=== PATIENT | male | born 1950 | race Caucasian/White ===

== ENCOUNTER 2018-02-10 11:25 | Inpatient (IN) | payer MEDICARE, OTHER ==
[~2018-02-10] VITALS: Ht 180.3 cm; Wt 100.0 kg
[2018-02-10] VITALS (7 sets, daily range): BP systolic 121–135; BP diastolic 56–78; PULSE 84–204; RESP 17–18; TEMP 98–100; O2SAT 94–97
[~2018-02-10 11:25] MED LIST: ASPI1TAB7 PO; FENO145T2 PO; FLUT50SP EACH NARE; INDO75CA3 PO; MULT1TAB PO; OMEG1CAP50 PO; SIMV20TA PO
[2018-02-10] MEDS ORDERED: IOHEXOL 350 MG/ML 10 ML VIAL (for RAD DIAG) IVCONTRAST ONE (11:26)
[2018-02-10] MEDS ORDERED: SODIUM CHLORIDE 0.9% FLUSH 10 ML FLUSH IVF PRN (11:45)
[2018-02-10 12:07] LABS: AUTOMATED NEUTROPHIL # 2.9 TH/MM3 (1.8-7.7); BASOPHIL # 0.3 TH/MM3 (0-0.2); BASOPHIL % 0.4 % (0.0-2.0); EOSINOPHIL # 0.4 TH/MM3 (0-0.4); EOSINOPHIL % 0.7 % (0.0-4.0); HEMOGLOBIN 10.9 GM/DL (13.0-17.0); LYMPH % 93.7 % (9.0-44.0); LYMPHOCYTE # 59.5 TH/MM3 (1.0-4.8); MEAN CELL VOLUME 93.2 FL (80.0-100.0); MEAN CORPUSCULAR HGB CONC 32.1 % (32.0-36.0); MEAN PLATELET VOLUME 7.2 FL (7.0-11.0); MONO % 0.6 % (0.0-8.0); MONOCYTE # 0.4 TH/MM3 (0-0.9); NEUT % 4.6 % (16.0-70.0); PLATELET COUNT 153 TH/MM3 (150-450); RED BLOOD COUNT 3.64 MIL/MM3 (4.50-5.90); RED CELL DISTRIBUTION WIDTH 18.2 % (11.6-17.2); WHITE BLOOD COUNT 63.4 TH/MM3 (4.0-11.0)
[2018-02-10 12:19] LABS: PROTHROMBIN TIME - PATIENT 10.6 SEC (9.8-11.6)
[2018-02-10] MEDS ORDERED: COEN400C PO (12:21)
--- NOTE | 2018-02-10 12:24 | PD ---
HPI Chief Complaint: Seizure Time Seen by Provider: 12:11 Travel History International Travel<30 days: No Contact w/Intl Traveler<30days: No Traveled to known affect area: No History of Present Illness HPI 67-year-old male presents to the emergency department for evaluation after a syncopal episode that occurred today. Patient was waiting at the Center for oncology to be seen due to a cough and wheezing. He states he has been coughing for the past week. He has been wheezing for the past 2-3 days and started running a fever yesterday. Patient states his fever was 101 this morning. He has been taking NyQuil for his cough. He states he is going for a bone marrow transplant soon at the [facility] so he wanted to kick his sickness in the butt. Patient states that while waiting, he felt like he was going to have a syncopal episode so he laid down on a bed. He then had seizure activity after the syncopal episode. He states this happened one other time before and that was when he was diagnosed with leukemia. Patient states he has seizure activity the previous time as well. The patient denies any pain at this time. He denies any chest pain or shortness of breath. No abdominal pain. Nausea, vomiting, diarrhea. His oncologist is Dr. Marie and he also goes the [facility]. Patient also reports history of hyperlipidemia. He reports history of pneumonia in the past. No exacerbating or alleviating factors. Moderate severity. PFSH Past Medical History Diabetes: No Triglycerides - High: Yes Tetanus Vaccination: > 5 Years Influenza Vaccination: Yes Past Surgical History Tonsillectomy: Yes Social History Alcohol Use: Yes (OCCAS) Tobacco Use: No Substance Use: No Allergies-Medications (Allergen,Severity, Reaction): Coded Allergies: No Known Allergies (Unverified Adverse Reaction, Unknown, 02/10/18) Reported Meds & Prescriptions Reported Meds & Active Scripts Active [place] 3 500 500 mg ([place]-3 Fatty Acids) 500 Mg (200 Mg-300 Mg)-1,000 Mg Cap 1 G PO DAILY Fenofibrate 145 Mg Tab 145 Mg PO DAILY Simvastatin 20 Mg Tab 20 Mg PO DAILY Indomethacin ER (Indomethacin) 75 Mg Caper 75 Mg PO DAILY Take with food, milk, or antacids to decrease stomach adverse effects. Fluticasone Nasal [place] 50 Mcg/Act Naspr 50 Mcg EACH NARE BID 50 mcg/spray Reported Coq-10 (Coenzyme Q10 (Ubidecarenone)) 400 Mg Cap 100 Mg PO DAILY Review of Systems Except as stated in HPI: all other systems reviewed are Neg Physical Exam Narrative GENERAL: Well-nourished, well-developed male patient, afebrile. Patient has fever of 100.0. SKIN: Focused skin assessment warm/dry. HEAD: Normocephalic. Atraumatic temp of 100.0. EYES: No scleral icterus. No injection or drainage. PERRLA. EOM intact. ENT: Mucosa pink and moist. No erythema or exudates. No uvular edema. No uvular , palatal, or tonsillar deviation. Airway patent. Nasal turbinates appear normal without nasal blood, purulent drainage or septal hematoma. Bilateral tympanic membranes clear without erythema or perforation. NECK: Supple, trachea midline. No JVD or lymphadenopathy. CARDIOVASCULAR: Regular rate and rhythm without murmurs, gallops, or rubs. RESPIRATORY: Breath sounds equal bilaterally. No accessory muscle use. Lung sounds with expiratory wheezes noted throughout. GASTROINTESTINAL: Abdomen soft, non-tender, nondistended. MUSCULOSKELETAL: No cyanosis, or edema. Bilateral upper and lower extremity strength 5/5. All extremities are neurovascularly intact. BACK: Nontender without obvious deformity. No CVA tenderness. NEUROLOGICAL: Awake and alert. Cranial nerves II through XII intact. Motor and sensory grossly within normal limits. Five out of 5 muscle strength in all muscle groups. Normal speech. Finger to nose is normal bilaterally. [id number]-fu-[id number] is normal bilaterally. Data Data Last Documented VS Vital Signs Date Time Temp Pulse Resp B/P (MAP) Pulse Ox O2 Delivery O2 Flow Rate FiO2 02/10/18 14:05 86 18 135/63 (87) 95 Aerosol Mask 8.00 02/10/18 11:34 100.0 Orders Orders Complete Blood Count With Diff (02/10/18 11:38) Blood Culture (02/10/18 11:38) Electrocardiogram (02/10/18 ) Ct Brain W/O Iv Contrast(Rout) (02/10/18 ) Blood Glucose (02/10/18 11:38) Ecg Monitoring (02/10/18 11:38) Iv Access Insert/Monitor (02/10/18 11:38) Oximetry (02/10/18 11:38) Comprehensive Metabolic Panel (02/10/18 11:38) Sodium Chloride 0.9% Flush (Ns Flush) (02/10/18 11:45) Ua Includes Microscopic (02/10/18 11:38) Prothrombin Time / Inr (Pt) (02/10/18 11:38) Act Partial Throm Time (Ptt) (02/10/18 11:38) Lactic Acid Sepsis Protocol (02/10/18 11:38) Magnesium (Mg) (02/10/18 11:38) Ckmb (Isoenzyme) Profile (02/10/18 11:38) Troponin I (02/10/18 11:38) Chest, Pa & Lat (02/10/18 11:38) Oxygen Administration (02/10/18 11:38) Methylprednisolone So Succ Inj (Solumedr (02/10/18 12:30) Albuterol-Ipratropium Neb (Duoneb Neb) (02/10/18 12:30) Acetaminophen (Tylenol) (02/10/18 12:30) Sodium Chlor 0.9% 1000 Ml Inj (Ns 1000 M (02/10/18 12:30) CKMB (02/10/18 11:42) CKMB% (02/10/18 11:42) Ct Pulmonary Angiogram (02/10/18 ) Ceftriaxone Inj (Rocephin Inj) (02/10/18 13:15) Azithromycin Inj (Zithromax Inj) (02/10/18 13:15) Iohexol 350 Inj (Omnipaque 350 Inj) (02/10/18 11:26) Admit Order (Ed Use Only) (02/10/18 14:13) Labs Laboratory Tests Test 02/10/18 11:42 White Blood Count 63.4 TH/MM3 Red Blood Count 3.64 MIL/MM3 Hemoglobin 10.9 GM/DL Hematocrit 34.0 % Mean Corpuscular Volume 93.2 FL Mean Corpuscular Hemoglobin 30.0 PG Mean Corpuscular Hemoglobin Concent 32.1 % Red Cell Distribution Width 18.2 % Platelet Count 153 TH/MM3 Mean Platelet Volume 7.2 FL Neutrophils (%) (Auto) 4.6 % Lymphocytes (%) (Auto) 93.7 % Monocytes (%) (Auto) 0.6 % Eosinophils (%) (Auto) 0.7 % Basophils (%) (Auto) 0.4 % Neutrophils # (Auto) 2.9 TH/MM3 Lymphocytes # (Auto) 59.5 TH/MM3 Monocytes # (Auto) 0.4 TH/MM3 Eosinophils # (Auto) 0.4 TH/MM3 Basophils # (Auto) 0.3 TH/MM3 CBC Comment AUTO DIFF Differential Total Cells Counted 100 Neutrophils % (Manual) 4 % Band Neutrophils % 1 % Lymphocytes % 94 % Monocytes % 1 % Neutrophils # (Manual) 3.2 TH/MM3 Differential Comment FINAL DIFF MANUAL Smudge Cells PRESENT Platelet Estimate NORMAL Platelet Morphology Comment NORMAL Prothrombin Time 10.6 SEC Prothromb Time International Ratio 1.0 RATIO Activated Partial Thromboplast Time 23.3 SEC Blood Urea Nitrogen 23 MG/DL Creatinine 1.46 MG/DL Random Glucose 118 MG/DL Total Protein 8.1 GM/DL Albumin 4.1 GM/DL Calcium Level 9.6 MG/DL Magnesium Level 2.2 MG/DL Alkaline Phosphatase 51 U/L Aspartate Amino Transf (AST/SGOT) 22 U/L Alanine Aminotransferase (ALT/SGPT) 19 U/L Total Bilirubin 0.4 MG/DL Sodium Level 140 MEQ/L Potassium Level 4.3 MEQ/L Chloride Level 106 MEQ/L Carbon Dioxide Level 25.6 MEQ/L Anion Gap 8 MEQ/L Estimat Glomerular Filtration Rate 48 ML/MIN Lactic Acid Level 1.0 mmol/L Total Creatine Kinase 164 U/L Creatine Kinase MB LESS THAN 0.5 NG/ML Troponin I LESS THAN 0.02 NG/ML MDM Medical Decision Making Medical Screen Exam Complete: Yes Emergency Medical Condition: Yes Medical Record Reviewed: Yes Interpretation(s) Last Impressions Chest X-Ray 02/10/18 1138 Signed Impressions: Service Date/Time: Saturday, February 10, 2018 12:44 - CONCLUSION: Multiple scattered nonspecific small infiltrates in both lung mistry. Kvng Reyes MD CT brain CONCLUSION: 1. No acute intracranial abnormality is identified. CT pulmonary angiogram - CONCLUSION: Axillary, mediastinal and monica hepatis adenopathy also suspicious for neoplastic process. There is no central pulmonary emboli Patchy airspace disease probably left lung. Moderate coronary calcifications. Differential Diagnosis Pneumonia versus sepsis versus electrolyte abnormality versus dehydration versus UTI versus PE Narrative Course 67-year-old male presents to the emergency department for evaluation of a syncopal episode and seizure-like activity. This is the second time this has happened to the patient. He has currently diagnosed with chronic lymphocytic leukemia and is being seen by Dr. Marie and the [facility]. He also reports cough, wheezing, fever. CBC, CMP, CK, troponin, magnesium, lactic acid, PTT, PT/INR, blood cultures 2 are ordered and pending. UA is ordered and pending. CT of the brain, CT pulmonary angiogram, and chest x-ray are ordered and pending. Patient is given DuoNeb 3, Solu-Medrol 125 mg IV, Tylenol 650 mg p.o., 1 L normal saline IV bolus. CBC shows leukocytosis 63.4. CMP shows BUN 23, creatinine 1.46. CK is 164. Troponin is less than 0.02. Lactic acid is 1.0. Magnesium is 2.2. Coags show no acute abnormal. UA [-]. Chest x-ray shows multiple scattered nonspecific small infiltrates in both lungs. CT of the brain shows no acute intracranial abnormality. CT pulmonary angiogram shows axillary, mediastinal, mnoica hepatic adenopathy also suspicious for neoplastic process, no central pulmonary emboli, patchy airspace disease, moderate coronary calcifications. Patient started on Rocephin 1 g IV, azithromycin 500 mg IV. Hospitalist was paged for admission. The patient sees the residents in their clinic. The residents accepted the admission. Sepsis Criteria SIRS Criteria (2 or more): Heart rate over 90, WBC > 76968, < 4000 or > 10% bands Sepsis Criteria (SIRS+source): Infect source susp/known Diagnosis Primary Impression: Pneumonia Qualified Codes: J18.9 - Pneumonia, unspecified organism Additional Impressions: Syncope Qualified Codes: R55 - Syncope and collapse Chronic lymphocytic leukemia Admitting Information Admitting Physician Requests: Admit Lizet Matta Feb 10, 2018 12:23
[2018-02-10 12:26] LABS: ALBUMIN 4.1 GM/DL (3.4-5.0); ALT (GPT) 19 U/L (12-78); AST (GOT) 22 U/L (15-37); BICARBONATE 25.6 MEQ/L (21.0-32.0); BLOOD UREA NITROGEN 23 MG/DL (7-18); CALCIUM 9.6 MG/DL (8.5-10.1); CHLORIDE 106 MEQ/L (98-107); CREATININE 1.46 MG/DL (0.60-1.30); GLOMERULAR FILTRATION RATE 48 ML/MIN (>89); GLUCOSE,RANDOM 118 MG/DL (74-106); MAGNESIUM 2.2 MG/DL (1.5-2.5); SODIUM (NA) 140 MEQ/L (136-145)
[2018-02-10] MEDS ORDERED: methylPREDNISolone SOD SUCC 125 MG/2 ML VIAL IV PUSH ONE (12:30)
[2018-02-10] MEDS ORDERED: SODIUM CHLOR 0.9% 1000 ML INJ 1,000 ML IV ONE (12:30)
[2018-02-10] MEDS ORDERED: ACETAMINOPHEN 325 MG TAB PO ONE (12:30)
[2018-02-10 12:31] LABS: ALKALINE PHOSPHATASE 51 U/L (45-117); TOTAL BILIRUBIN ADULT 0.4 MG/DL (0.2-1.0); TOTAL PROTEIN 8.1 GM/DL (6.4-8.2); TROPONIN I LESS THAN 0.02 NG/ML (0.02-0.05)
[2018-02-10 12:46] LABS: BANDS 1 % (0-6); LYMPHOCYTES 94 % (9-44); MONOCYTES 1 % (0-8); NEUTROPHIL # MANUAL DIFF 3.2 TH/MM3 (1.8-7.7); POLYS (SEG NEUTROPHILS) 4 % (16-70)
[2018-02-10 12:47] LABS: SMUDGE CELLS PRESENT PRESENT
--- NOTE | 2018-02-10 12:58 | RADRPT ---
EXAM DATE/TIME: 02/10/2018 12:44 [facility] COMPARISON: No previous studies available for comparison. INDICATIONS : Syncope. Seizure. Cough. Wheezing. MEDICAL HISTORY : Leukemia (recently diagnosed). SURGICAL HISTORY : None. ENCOUNTER: Initial ACUITY: 1 week PAIN SCORE: 0/10 LOCATION: Bilateral chest FINDINGS: There are scattered nonspecific small infiltrates in both lung mistry. Otherwise there is good aerati on of the lung mistry. There are no pleural effusions or pulmonary edema. The heart size is within no rmal limits. There is no evidence of pneumothorax. The bony structures are grossly intact. CONCLUSION: Multiple scattered nonspecific small infiltrates in both lung mistry. Kvng Reyes MD on February 10, 2018 at 12:55 Board Certified Radiologist. This report was verified electronically.
[2018-02-10] MEDS ORDERED: AZITHROMYCIN INJ 500 MG in SODIUM CHLOR 0.9% 250 ML INJ 250 ML IV ONE (13:15)
[2018-02-10] MEDS ORDERED: cefTRIAXone INJ 1,000 MG in SODIUM CHLORIDE 0.9% INJ 100 ML IV ONE (13:15)
[2018-02-10] MEDS: RESP: ALBUTEROL 2.5 MG/IPRATROPIUM 0.5 MG NEB (SCH) INH ×2 (13:22→15:58)
--- NOTE | 2018-02-10 13:49 | RADRPT ---
EXAM DATE/TIME: 02/10/2018 13:26 [facility] COMPARISON: No previous studies available for comparison. INDICATIONS : Syncope with seizure like activity RADIATION DOSE: 56.35 CTDIvol (mGy) MEDICAL HISTORY : Leukemia. SURGICAL HISTORY : None. ENCOUNTER: Initial ACUITY: 1 day PAIN SCALE: 0/10 LOCATION: cranial TECHNIQUE: Multiple contiguous axial images were obtained of the head. Using automated exposure control and adj ustment of the mA and/or kV according to patient size, radiation dose was kept as low as reasonably a chievable to obtain optimal diagnostic quality images. DICOM format image data is available electro nically for review and comparison. FINDINGS: CEREBRUM: The ventricles are normal for age. No evidence of midline shift, mass lesion, hemorrhage or acute in farction. No extra-axial fluid collections are seen. POSTERIOR FOSSA: The cerebellum and brainstem are intact. The 4th ventricle is midline. The cerebellopontine angle i s unremarkable. EXTRACRANIAL: The visualized portion of the orbits is intact. SKULL: The calvaria is intact. No evidence of skull fracture. CONCLUSION: 1. No acute intracranial abnormality is identified. Mikhail St MD on February 10, 2018 at 13:45 Board Certified Radiologist. This report was verified electronically.
--- NOTE | 2018-02-10 13:58 | RADRPT ---
EXAM DATE/TIME: 02/10/2018 13:29 [facility] COMPARISON: CHEST PA & LAT, February 10, 2018, 12:44. INDICATIONS : Syncope IV CONTRAST: 71 cc Omnipaque 350 (iohexol) IV RADIATION DOSE: 10.75 CTDIvol (mGy) MEDICAL HISTORY : Leukemia. SURGICAL HISTORY : None. ENCOUNTER: Initial ACUITY: 1 day PAIN SCALE: 0/10 LOCATION: chest TECHNIQUE: Volumetric scanning of the chest was performed using a pulmonary embolism protocol MIP images were re constructed. Using automated exposure control and adjustment of the mA and/or kV according to patien t size, radiation dose was kept as low as reasonably achievable to obtain optimal diagnostic quality images. DICOM format image data is available electronically for review and comparison. Follow-up recommendations for detected pulmonary nodules are based at a minimum on nodule size and pa tient risk factors according to Fleischner Society Guidelines. FINDINGS: Patchy airspace disease is seen in both the right and left lungs worse in the left upper lobe. There is no pleural effusion Large axillary nodes are present, the largest node measuring 2.7 cm. Mediastinum is not is present a s well. The largest precarinal node measures 2.2 cm. There is right hilar lymph node mass. The lar ge subcarinal lymph node mass evident. Moderate coronary calcifications. There is no central pulmonary emboli Adenopathy is seen in the monica hepatis.. The spleen is of normal size Degenerative changes are seen in the thoracic spine. CONCLUSION: Axillary, mediastinal and monica hepatis adenopathy also suspicious for neoplastic process. There is no central pulmonary emboli Patchy airspace disease probably left lung. Moderate coronary calcifications. Ugo St MD FACR on February 10, 2018 at 13:52 Board Certified Radiologist. This report was verified electronically.
[2018-02-10] MEDS ORDERED: BISACODYL 10 MG SUPP RECTAL PRN (14:30)
[2018-02-10] MEDS ORDERED: MAGNESIUM HYDROXIDE SUSP 30 ML CUP PO PRN (14:30)
[2018-02-10] MEDS ORDERED: SODIUM CHLORIDE 0.9% FLUSH 10 ML FLUSH IV FLUSH PRN (14:30)
[2018-02-10] MEDS ORDERED: ONDANSETRON HCL 4 MG/2 ML VIAL IVP PRN (14:30)
[2018-02-10] MEDS ORDERED: LACTULOSE SYRUP 20 GM/30 ML CUP PO PRN (14:30)
[2018-02-10] MEDS ORDERED: ACETAMINOPHEN 325 MG TAB PO PRN (14:30)
[2018-02-10] MEDS ORDERED: NALOXONE HCL 0.4 MG/ML AMP IV PUSH PRN (14:30)
[2018-02-10] MEDS ORDERED: SENNOSIDES 8.6 MG TAB PO PRN (14:30)
--- NOTE | 2018-02-10 14:53 | HHI.HP ---
HPI Service Family Medicine Primary Care Physician Non-Staff Admission Diagnosis pneumonia, syncope, chronic lymphocytic leukemia Diagnoses: International Travel<30 Days: No Contact w/Intl Traveler<30days: No History of Present Illness Patient is a 67 year old male with history of CLL and HTN, and hypothyroidism who presents after syncopal episode and likely seizure. About one week ago patient began to have a cough, productive but patient has not seen it (swallows it). This morning he went for evaluate at [facility]. Patient had a temperature of about 101F at home last night. He took Nyquil which did not help with his symptoms. He acutely got worse and had a syncopal/ seizure-type episode. He was sitting in chair and patient became diaphoretic, lied down and then blacked out. Per , he lost his color, eyes rolled back in head, had urinary incontinence. No tongue biting. No room spinning or dizziness symptoms. Lasted 30 seconds to one minute. About fifteen minutes later he felt a similar prodrome but did not lose consciousness. He was taken to ED via [facility] for further work-up. No history of seizures aside from possible seizure in 10/2017. Has pleuritis chest pain. No shortness of breath. Notes he has had only coffee today. Patient has recent diagnosis of CLL: * October 2017: had an episode like a seizure. He was sitting in restaurant after a day of golf, then patient became diaphoretic and had a syncopal episode. Echo, bloodwork performed at that time, concerning for CLL. FISH studies, other w/u pending. * Dr. Marie evaluated patient. Dr. Pepper in [place] ([facility]). Scheduled for bone marrow bx and CT scans at [facility] next * Scheduled to go to [place] on March 25 (Rubina Ruiz MD) Review of Systems Constitutional: COMPLAINS OF: Diaphoretic episodes, Fever (101 on 02/09), DENIES : Weight gain, Weight loss, Dizziness, Change in appetite Eyes: DENIES: Blurred vision, Diplopia Ears, nose, mouth, throat: COMPLAINS OF: Tinnitus (chronic), Hearing loss ( chronic), Nasal discharge, DENIES: Vertigo, Throat pain, Ear Pain, Epistaxis, Sinus Pain, Toothache, Odynophagia Respiratory: COMPLAINS OF: Cough, DENIES: Wheezing, Hemoptysis, Sputum production, Shortness of breath Cardiovascular: COMPLAINS OF: Syncope, DENIES: Chest pain, Palpitations Gastrointestinal: DENIES: Abdominal pain, Constipation, Diarrhea, Nausea, Vomiting, Difficulty Swallowing Genitourinary: DENIES: Urinary frequency, Dysuria Musculoskeletal: DENIES: Joint pain, Muscle aches Integumentary: DENIES: Pruritus, Rash Hematologic/lymphatic: COMPLAINS OF: Lymphadenopathy, DENIES: Bruising Neurologic: COMPLAINS OF: Seizures, DENIES: Abnormal gait, Headache, Localized weakness, Paresthesias, Poor Balance (Rubina Ruiz MD) Past Family Social History Past Medical History Osteoarthritis Hemorrhoids Pneumonia x 2 (11-day hospitalizations for both, over 30 years ago) Leukocytosis/lymphocytosis 10/2017: WBC 60 Normocytic anemia Thrombocytopenia Dyslipidemia Past Surgical History Colonoscopy 1999 -refuses to have any more Hemorrhoidectomy 2007 Repair of right ankle/foot in 1987 after accident Tonsillectomy 1954 Reported Medications Reported Meds & Active Scripts Active [place] 3 500 500 mg (Newport-3 Fatty Acids) 500 Mg (200 Mg-300 Mg)-1,000 Mg Cap 1 G PO DAILY Fenofibrate 145 Mg Tab 145 Mg PO DAILY Simvastatin 20 Mg Tab 20 Mg PO DAILY Indomethacin ER (Indomethacin) 75 Mg Caper 75 Mg PO DAILY Take with food, milk, or antacids to decrease stomach adverse effects. Fluticasone Nasal [place] 50 Mcg/Act Naspr 50 Mcg EACH NARE BID 50 mcg/spray Reported Coq-10 (Coenzyme Q10 (Ubidecarenone)) 400 Mg Cap 100 Mg PO DAILY (Rubina Ruiz MD) Allergies: Coded Allergies: No Known Allergies (Unverified Adverse Reaction, Unknown, 02/10/18) Active Ordered Medications Inpatient Medications Acetaminophen (Tylenol) 650 mg Q4H PRN PO TEMP > 100.4, PAIN 1-10; Start at 14:30 Albuterol/ Ipratropium (Duoneb Neb) 1 ampule Q6HR NEB INH Last administered on 02/10/18at 15:58; Start 02/10/18 at 16:00 Azithromycin (Zithromax) 500 mg DAILY PO ; Start 02/11/18 at 09:00 Azithromycin 500 mg/Sodium Chloride 250 ml @ 250 mls/hr ONCE ONCE IV Last administered on 02/10/18at 13:59; Start 02/10/18 at 13:15; Stop 02/10/18 at 14:14 ; Status DC Bisacodyl (Dulcolax Supp) 10 mg DAILY PRN RECTAL SEVERE CONSITIPATION; Start at 14:30 Ceftriaxone Sodium 1000 mg/ Sodium Chloride 100 ml @ 200 mls/hr Q24H IV ; Start 02/11/18 at 14:00 Enoxaparin Sodium (Lovenox Inj) 40 mg Q24H SQ ; Start 02/10/18 at 16:00 Fenofibrate (Tricor) 48 mg DAILY PO ; Start 02/11/18 at 09:00 Fluticasone Propionate (Flonase Petr Spr) 1 spray BID EACH NARE ; Start 02/10/18 at 21:00 Indomethacin (Indocin Sr) 75 mg DAILY PO Last administered on 02/10/18at 15:48 ; Start 02/10/18 at 15:15 Lactulose (Lactulose Liq) 30 ml DAILY PRN PO SEVERE CONSITIPATION; Start at 14:30 Lorazepam (Ativan Inj) 2 mg UNSCH PRN IV PUSH SEE LABEL COMMENTS; Start at 15:15 Magnesium Hydroxide (Milk Of Magnesia Liq) 30 ml Q12H PRN PO Mild constipation ; Start 02/10/18 at 14:30 Methylprednisolone Sodium Succinate (SoluMEDROL INJ) 125 mg ONCE ONCE IV PUSH Last administered on 02/10/18at 12:32; Start 02/10/18 at 12:30; Stop 02/10/18 at 12:31; Status DC Naloxone HCl (Narcan Inj) 0.4 mg UNSCH PRN IV PUSH SEE LABEL COMMENTS; Start at 14:30 Ondansetron HCl (Zofran Inj) 4 mg Q6H PRN IVP NAUSEA OR VOMITING; Start at 14:30 Pravastatin Sodium (Pravachol) 40 mg DAILY PO ; Start 02/10/18 at 20:00 Senna/Docusate Sodium (Karmen-Colace) 1 tab BID PO ; Start 02/10/18 at 21:00 Sennosides (Senokot) 17.2 mg Q12H PRN PO Moderate constipation; Start 3/19/18 at 14:30 Sodium Chloride (NS Flush) 2 ml BID IV FLUSH ; Start 02/10/18 at 21:00 Family History Parents both MGM . MGF at age 70 PGM . PGF . 2 sons alive and healthy one daughter alive and healthy Social History . [employer]. Never smoked. Drinks socially. Patient had Prevnar vaccine 2015. Pneumovax 2017. (Rubina Ruiz MD) Physical Exam Vital Signs Vital Signs Date Time Temp Pulse Resp B/P (MAP) Pulse Ox O2 Delivery O2 Flow Rate FiO2 02/10/18 14:05 86 18 135/63 (87) 95 Aerosol Mask 8.00 02/10/18 12:21 84 18 121/56 (77) 95 Room Air 02/10/18 12:16 86 18 94 Room Air 02/10/18 11:34 100.0 98 18 135/65 (88) 95 Physical Exam GENERAL: This is a well-nourished, well-developed male in no apparent distress. at bedside. SKIN: No rashes, ecchymoses or lesions. Cool and dry. HEAD: Atraumatic. Normocephalic. No temporal or scalp tenderness. EYES: Pupils equal round and reactive to light and accommodation. EOMI. No scleral icterus. No injection or drainage. ENT: Nose without bleeding or purulent drainage. Throat without erythema, tonsillar hypertrophy or exudate. Uvula midline. Airway patent. NECK: Trachea midline. No JVD. Shotty cervical lymphadenopathy noted bilaterally, worse on the left. No axillary or inguinal lymphadenopathy noted. Neck supple, nontender, no meningeal signs. CARDIOVASCULAR: Regular rate and rhythm without murmurs, gallops, or rubs. RESPIRATORY: Clear to auscultation aside from some transmitted upper airway sounds. Breath sounds equal bilaterally. No wheezes, rales, or rhonchi. GASTROINTESTINAL: Abdomen soft, non-tender, nondistended. Obese. Normal bowel sounds. No hepato-splenomegaly, or palpable masses. No guarding. MUSCULOSKELETAL: Extremities without clubbing, cyanosis, or edema. Mild deformity which is chronic of the left ankle. No joint tenderness, effusion, or edema noted. No calf tenderness. NEUROLOGICAL: Awake and alert. Cranial nerves II through XII grossly intact. Motor and sensory grossly within normal limits. Grossly normal strength in all muscle groups. Normal speech. Laboratory Laboratory Tests Test 02/10/18 11:42 White Blood Count 63.4 Red Blood Count 3.64 Hemoglobin 10.9 Hematocrit 34.0 Mean Corpuscular Volume 93.2 Mean Corpuscular Hemoglobin 30.0 Mean Corpuscular Hemoglobin Concent 32.1 Red Cell Distribution Width 18.2 Platelet Count 153 Mean Platelet Volume 7.2 Neutrophils (%) (Auto) 4.6 Lymphocytes (%) (Auto) 93.7 Monocytes (%) (Auto) 0.6 Eosinophils (%) (Auto) 0.7 Basophils (%) (Auto) 0.4 Neutrophils # (Auto) 2.9 Lymphocytes # (Auto) 59.5 Monocytes # (Auto) 0.4 Eosinophils # (Auto) 0.4 Basophils # (Auto) 0.3 CBC Comment AUTO DIFF Differential Total Cells Counted 100 Neutrophils % (Manual) 4 Band Neutrophils % 1 Lymphocytes % 94 Monocytes % 1 Neutrophils # (Manual) 3.2 Differential Comment FINAL DIFF MANUAL Smudge Cells PRESENT Platelet Estimate NORMAL Platelet Morphology Comment NORMAL Prothrombin Time 10.6 Prothromb Time International Ratio 1.0 Activated Partial Thromboplast Time 23.3 Blood Urea Nitrogen 23 Creatinine 1.46 Random Glucose 118 Total Protein 8.1 Albumin 4.1 Calcium Level 9.6 Magnesium Level 2.2 Alkaline Phosphatase 51 Aspartate Amino Transf (AST/SGOT) 22 Alanine Aminotransferase (ALT/SGPT) 19 Total Bilirubin 0.4 Sodium Level 140 Potassium Level 4.3 Chloride Level 106 Carbon Dioxide Level 25.6 Anion Gap 8 Estimat Glomerular Filtration Rate 48 Lactic Acid Level 1.0 Total Creatine Kinase 164 Creatine Kinase MB LESS THAN 0.5 Troponin I LESS THAN 0.02 Date/Time Source Procedure Growth Status 02/10/18 11:47 Blood Peripheral Aerobic Blood Culture Pending Received 02/10/18 11:47 Blood Peripheral Anaerobic Blood Culture Pending Received (Rubina Ruiz MD) Result Diagram: 02/10/18 1142 02/10/18 1142 Imaging Last Impressions Chest X-Ray 02/10/18 1138 Signed Impressions: Service Date/Time: Saturday, February 10, 2018 12:44 - CONCLUSION: Multiple scattered nonspecific small infiltrates in both lung mistry. Kvng Reyes MD Head CT 02/10/18 0000 Signed Impressions: Service Date/Time: Saturday, February 10, 2018 13:26 - CONCLUSION: 1. No acute intracranial abnormality is identified. Mikhail St MD CT Angiography 02/10/18 0000 Signed Impressions: Service Date/Time: Saturday, February 10, 2018 13:29 - CONCLUSION: Axillary, mediastinal and monica hepatis adenopathy also suspicious for neoplastic process. There is no central pulmonary emboli Patchy airspace disease probably left lung. Moderate coronary calcifications. Ugo St MD FACR (Rubina Ruiz MD) Caprini VTE Risk Assessment Caprini VTE Risk Assessment: Mod/High Risk (score >= 2) Caprini Risk Assessment Model Point Value = 1 Point Value = 2 Point Value = 3 Point Value = 5 Age 41-60 Minor surgery BMI > 25 kg/m2 Swollen legs Varicose veins or History of unexplained or recurrent spontaneous Oral contraceptives or hormone replacement Sepsis (< 1 month) Serious lung disease, including pneumonia (< 1 month) Abnormal pulmonary function Acute myocardial infarction Congestive heart failure (< 1 month) History of inflammatory bowel disease Medical patient at bed rest Age 61-74 Arthroscopic surgery Major open surgery (> 45 min) Laparoscopic surgery (> 45 min) Malignancy Confined to bed (> 72 hours) Immobilizing plaster cast Central venous access Age >= 75 History of VTE Family history of VTE Factor V Leiden Prothrombin [id number] Lupus anticoagulant Anticardiolipin antibodies Elevated serum homocysteine Heparin-induced thrombocytopenia Other congenital or acquired thrombophilia Stroke (< 1 month) Elective arthroplasty Hip, pelvis, or leg fracture Acute spinal cord injury (< 1 month) Prophylaxis Regimen Total Risk Factor Score Risk Level Prophylaxis Regimen 0-1 Low Early ambulation 2 Moderate Order ONE of the following: *Sequential Compression Device (SCD) *Heparin 5000 units SQ BID 3-4 Higher Order ONE of the following medications: *Heparin 5000 units SQ TID *Enoxaparin/Lovenox 40 mg SQ daily (WT < 150 kg, CrCl > 30 mL/min) *Enoxaparin/Lovenox 30 mg SQ daily (WT < 150 kg, CrCl > 10-29 mL/min) *Enoxaparin/Lovenox 30 mg SQ BID (WT < 150 kg, CrCl > 30 mL/min) AND/OR *Sequential Compression Device (SCD) 5 or more Highest Order ONE of the following medications: *Heparin 5000 units SQ TID (Preferred with Epidurals) *Enoxaparin/Lovenox 40 mg SQ daily (WT < 150 kg, CrCl > 30 mL/min) *Enoxaparin/Lovenox 30 mg SQ daily (WT < 150 kg, CrCl > 10-29 mL/min) *Enoxaparin/Lovenox 30 mg SQ BID (WT < 150 kg, CrCl > 30 mL/min) AND *Sequential Compression Device (SCD) (Rubina Ruiz MD) Assessment and Plan Assessment and Plan 67-year-old male with CLL currently in workup process, hypothyroidism, osteoarthritis who presents after syncopal episode. This is his second syncopal episode since October 2017 and he notes that he possibly had seizure activity both times. No seizure workup has yet occurred. On workup in the ED patient found to have possible pneumonia given symptoms and CXR findings. Suspect initial viral etiology but this likely is transition to bacterial source at this time given chronicity. CTA negative for PE. Leukocytosis noted, but this is at patient's baseline if not improved. Last labs were 02/04/[address] Marie. Also noted to have ITZEL on admission. Echocardiogram from outpatient reviewed from 11/19/2017 showing normal EF 55-60% , mild MR, mild TR. Patient admitted for IV antibiotics and close monitoring. He will also be monitored closely for seizure activity and have EEG. Code Status Full code Discussed Condition With Seen and discussed with Dr. Elmira Ferro (Rubina Ruiz MD) Attending Attestation This 67 yo male patient of Dr. Brock was seen, examined and discussed with Dr. Ruiz. Very stable in appearance and on exam, with wbc trending down from earlier in the month. Afebrile, BP stable. EKG normal. I agree with the plan as documented. From tomorrow he will be followed by Margarita Pollard and Timothy. (Elmira Ferro MD) Problem List: (1) Pneumonia ICD Codes: J18.9 - Pneumonia, unspecified organism Status: Acute Plan: Patient presented with approximately 1 week history of upper respiratory symptoms which have worsened gradually. Syncopal episode today may have been related to acute infection. Patient is status post 1 L normal saline in the ED with workup notable for leukocytosis but interpretation is complicated by CLL diagnosis. Status post 125 milligrams Solu-Medrol IV 1 in ED. CXR showing small bilateral infiltrates in both lung mistry, CTA showing no PE and similar infiltrates. * Continue normal saline at 140cc/hr * Rocephin 1 g daily, Zithromax 100 mg daily to cover for pneumonia * Duo nebs every 6 hours scheduled, albuterol every 2 hours as needed * Continue fluticasone 2 sprays each nare daily * Patient is noted to have had Prevnar vaccine August 2015, pneumococcal vaccine November 2016. * Recheck CBC and BMP regularly, discontinue IV fluids once ITZEL resolved (2) Seizure ICD Codes: R56.9 - Unspecified convulsions Status: Acute Plan: Patient with possible first or second episode of seizure lasting approximately 1 minute. Possibly this was a syncopal episode the patient did have loss of bladder function during episode. No previous EEG workup. CT head negative on arrival to ED. Will initiate seizure precautions, give Ativan if needed, order EEG. (3) Syncopal episodes ICD Codes: R55 - Syncope and collapse Plan: Unclear etiology, possibly related to seizure or dehydration or acute infection. Will monitor closely as noted above. Telemetry. Echo reviewed from outpatient noted above. Will order cardiac enzymes overnight (4) Chronic lymphocytic leukemia ICD Codes: C91.90 - Lymphoid leukemia, unspecified not having achieved remission Status: Acute Plan: Patient diagnosed approximately October 2017 for CLL. Currently receiving workup to include bone marrow biopsy next week, body scan at that time as well. Dr. Marie is local oncologist and patient also is being evaluated at [facility] [place] in [place]. Not currently on any treatments. Leukocytosis noted with WBC approximately 64 at time of admission. Noted to have mild anemia and lower limit platelet count on admission, stable. * Notably ANC is 3550, will monitor closely * If ANC drops below 1000 will consider broad spectrum antibiotics to cover Pseudomonas and other GNR's given immunocompromised (5) ITZEL (acute kidney injury) ICD Codes: N17.9 - Acute kidney failure, unspecified Status: Acute Plan: Noted, mild, will monitor. Suspect due to dehydration. Recheck BMP regularly, discontinue IV fluids once ITZEL resolved (6) HLD (hyperlipidemia) ICD Codes: E78.5 - Hyperlipidemia, unspecified Status: Chronic Plan: Chronic, stable, continue home dose of simvastatin 20 mg daily and fenofibrate 145 mg daily (7) Fluids/Electrolytes/Nutrition/Prophylaxis Status: Acute Plan: Fluids: tolerating PO/NS @ 140ml/hr. ITZEL noted on admission will monitor. Electrolytes: monitor and replete as needed Nutrition: Regular diet DVT Prophylaxis: Early ambulation. Lovenox 40mg subQ q24hr/bilateral SCDs GI Prophylaxis: None and PRN anti-HTN: Clonidine 0.1mg PO PRN for SBP > 180/ and/or DBP > 100 (Rubina Ruiz MD) Physician Certification 2 Midnight Certification Type: Admission for Inpatient Services Order for Inpatient Services The services are ordered in accordance with Medicare regulations or non- Medicare payer requirements, as applicable. In the case of services not specified as inpatient-only, they are appropriately provided as inpatient services in accordance with the 2-midnight benchmark. Estimated LOS (days): 3 days is the estimated time the patient will need to remain in the hospital, assuming treatment plan goals are met and no additional complications. Post-Hospital Plan: Home (Rubina Ruiz MD) Problem Qualifiers (1) Pneumonia: Qualified Codes: J18.9 - Pneumonia, unspecified organism Rubina Ruiz MD Feb 10, 2018 14:53 Elmira Ferro MD Feb 10, 2018 18:04
[2018-02-10] MEDS ORDERED: LORazepam 2 MG/ML VIAL IV PUSH PRN (15:15)
[2018-02-10] MEDS: INDOMETHACIN 75 MG CONTROLLED RELEASE CAP PO SCH (15:48)
[2018-02-10] MEDS: ENOXAPARIN SODIUM 40 MG/0.4 ML SYRINGE SQ SCH ×2 (16:00→18:26)
[2018-02-10] MEDS: SODIUM CHLOR 0.9% 1000 ML INJ 1,000 ML IV SCH ×2 (16:34→20:40)
[2018-02-10] MEDS ORDERED: cloNIDine HCL 0.1 MG TAB PO PRN (17:15)
[2018-02-10] MEDS ORDERED: NON-FORMULARY DRUG (Simvastatin 20 MG) PO SCH (20:00)
[2018-02-10 20:02] LABS: AUTOMATED NEUTROPHIL # 3.7 TH/MM3 (1.8-7.7); BASOPHIL # 0.2 TH/MM3 (0-0.2); BASOPHIL % 0.3 % (0.0-2.0); EOSINOPHIL # 0.3 TH/MM3 (0-0.4); EOSINOPHIL % 0.4 % (0.0-4.0); HEMATOCRIT 31.8 % (39.0-51.0); HEMOGLOBIN 10.1 GM/DL (13.0-17.0); LYMPH % 92.9 % (9.0-44.0); MEAN CELL VOLUME 93.9 FL (80.0-100.0); MEAN CORPUSCULAR HEMOGLOBIN 29.8 PG (27.0-34.0); MEAN CORPUSCULAR HGB CONC 31.8 % (32.0-36.0); MEAN PLATELET VOLUME 7.4 FL (7.0-11.0); MONO % 0.7 % (0.0-8.0); MONOCYTE # 0.4 TH/MM3 (0-0.9); NEUT % 5.7 % (16.0-70.0); PLATELET COUNT 145 TH/MM3 (150-450); RED BLOOD COUNT 3.39 MIL/MM3 (4.50-5.90); RED CELL DISTRIBUTION WIDTH 17.8 % (11.6-17.2); WHITE BLOOD COUNT 64.6 TH/MM3 (4.0-11.0)
[2018-02-10 20:31] LABS: BICARBONATE 21.1 MEQ/L (21.0-32.0); BLOOD UREA NITROGEN 28 MG/DL (7-18); CHLORIDE 106 MEQ/L (98-107); CREATININE 1.57 MG/DL (0.60-1.30); GLOMERULAR FILTRATION RATE 44 ML/MIN (>89); GLUCOSE,RANDOM 264 MG/DL (74-106); SODIUM (NA) 141 MEQ/L (136-145); TROPONIN I LESS THAN 0.02 NG/ML (0.02-0.05)
[2018-02-10] MEDS: SODIUM CHLORIDE 0.9% FLUSH 10 ML FLUSH IV FLUSH SCH (20:38)
[2018-02-10] MEDS: FLUTICASONE PROPIONATE 50 MCG/ACT 16 GM NASAL SPRAY EACH NARE SCH (20:39)
[2018-02-10] MEDS: DOCUSATE SODIUM 50 MG/SENNA 8.6 MG TAB PO SCH (20:40)
[2018-02-10 20:45] LABS: BANDS 1 % (0-6); LYMPHOCYTES 94 % (9-44); NEUTROPHIL # MANUAL DIFF 3.9 TH/MM3 (1.8-7.7); POLYS (SEG NEUTROPHILS) 5 % (16-70)
[2018-02-10] MEDS: PRAVASTATIN SOD 40 MG TAB PO SCH (20:45)
[2018-02-11] VITALS (18 sets, daily range): BP systolic 118–158; BP diastolic 57–82; PULSE 75–99; RESP 16–18; TEMP 97.2–99.5; O2SAT 93–100
[2018-02-11 02:16] LABS: HEMATOCRIT 27.5 % (39.0-51.0); MEAN CELL VOLUME 92.6 FL (80.0-100.0); MEAN CORPUSCULAR HEMOGLOBIN 30.5 PG (27.0-34.0); MEAN CORPUSCULAR HGB CONC 32.9 % (32.0-36.0); MEAN PLATELET VOLUME 7.1 FL (7.0-11.0); PLATELET COUNT 133 TH/MM3 (150-450); RED BLOOD COUNT 2.97 MIL/MM3 (4.50-5.90); RED CELL DISTRIBUTION WIDTH 18.1 % (11.6-17.2); WHITE BLOOD COUNT 54.6 TH/MM3 (4.0-11.0)
[2018-02-11 02:38] LABS: LYMPHOCYTES 97 % (9-44); NEUTROPHIL # MANUAL DIFF 1.6 TH/MM3 (1.8-7.7); POLYS (SEG NEUTROPHILS) 3 % (16-70)
[2018-02-11 02:41] LABS: ALBUMIN 3.3 GM/DL (3.4-5.0); ALKALINE PHOSPHATASE 39 U/L (45-117); ALT (GPT) 16 U/L (12-78); AST (GOT) 22 U/L (15-37); BICARBONATE 22.9 MEQ/L (21.0-32.0); BLOOD UREA NITROGEN 31 MG/DL (7-18); CALCIUM 8.3 MG/DL (8.5-10.1); CHLORIDE 111 MEQ/L (98-107); CREATININE 1.36 MG/DL (0.60-1.30); GLOMERULAR FILTRATION RATE 52 ML/MIN (>89); GLUCOSE,RANDOM 175 MG/DL (74-106); SODIUM (NA) 143 MEQ/L (136-145); TOTAL BILIRUBIN ADULT 0.2 MG/DL (0.2-1.0); TOTAL PROTEIN 6.8 GM/DL (6.4-8.2); TROPONIN I LESS THAN 0.02 NG/ML (0.02-0.05)
[2018-02-11] MEDS: RESP: ALBUTEROL 2.5 MG/IPRATROPIUM 0.5 MG NEB (SCH) INH ×4 (03:27→20:15)
[2018-02-11] MEDS: SODIUM CHLOR 0.9% 1000 ML INJ 1,000 ML IV SCH (05:16)
[2018-02-11 08:30] LABS: CALCIUM 8.8 MG/DL (8.5-10.1); CREATININE 1.21 MG/DL (0.60-1.30)
[2018-02-11] MEDS: INDOMETHACIN 75 MG CONTROLLED RELEASE CAP PO SCH (08:30)
[2018-02-11] MEDS: AZITHROMYCIN 250 MG TAB PO SCH (08:30)
[2018-02-11] MEDS: PRAVASTATIN SOD 40 MG TAB PO SCH (08:30)
[2018-02-11] MEDS: DOCUSATE SODIUM 50 MG/SENNA 8.6 MG TAB PO SCH ×2 (08:30→20:20)
--- NOTE | 2018-02-11 08:30 | HHI.FPPN ---
Subjective Remarks Patient was seen and examined this morning. He feels better this morning. Still has a cough but no fever. Ambulating with assistance and with no syncope, sob, chest pain, or seizure. EEG pending. Objective Vitals Vital Signs Date Time Temp Pulse Resp B/P (MAP) Pulse Ox O2 Delivery O2 Flow Rate FiO2 02/11/18 08:03 93 21 02/11/18 05:11 97.8 78 16 128/74 (92) 94 02/11/18 04:00 77 02/11/18 03:28 93 02/11/18 00:00 97.6 83 16 118/57 (77) 95 02/11/18 00:00 81 02/10/18 20:25 98.0 91 17 130/78 (95) 94 02/10/18 20:00 94 02/10/18 18:37 106 02/10/18 17:45 98.1 105 18 129/71 (90) 97 02/10/18 17:07 02/10/18 14:05 86 18 135/63 (87) 95 Aerosol Mask 8.00 02/10/18 12:21 84 18 121/56 (77) 95 Room Air 02/10/18 12:16 86 18 94 Room Air 02/10/18 11:34 100.0 98 18 135/65 (88) 95 I/O 02/10/18 02/10/18 02/10/18 02/11/18 02/11/18 02/11/18 07:00 15:00 23:00 07:00 15:00 23:00 Intake Total 1100 ml 250 ml 1850 ml Balance 1100 ml 250 ml 1850 ml Intake Oral 720 ml IV Total 1100 ml 250 ml 1130 ml # Voids 2 Result Diagram: 02/11/18 0135 02/11/18 0135 Imaging Last Impressions Chest X-Ray 02/10/18 1138 Signed Impressions: Service Date/Time: Saturday, February 10, 2018 12:44 - CONCLUSION: Multiple scattered nonspecific small infiltrates in both lung mistry. Kvng Reyes MD Head CT 02/10/18 0000 Signed Impressions: Service Date/Time: Saturday, February 10, 2018 13:26 - CONCLUSION: 1. No acute intracranial abnormality is identified. Mikhail St MD CT Angiography 02/10/18 0000 Signed Impressions: Service Date/Time: Saturday, February 10, 2018 13:29 - CONCLUSION: Axillary, mediastinal and monica hepatis adenopathy also suspicious for neoplastic process. There is no central pulmonary emboli Patchy airspace disease probably left lung. Moderate coronary calcifications. Ugo St MD FACR Objective Remarks GEN: Well-developed, well-nourished patient. No acute distress. Sitting up in a chair. He is comfortable SKIN: No rashes, ecchymoses or lesions. Warm and dry. CV: Regular rate and rhythm without obvious murmurs LUNGS: Clear to auscultation bilaterally. Normal respiratory effort. No wheezes , rales, rhonchi. GI: Soft, nondistended. Bowel sounds present. EXT: No edema. No calf tenderness. NEURO/PSYCH: Awake, alert. Appropriate insight and judgment. Normal speech Medications and IVs Inpatient Medications Acetaminophen (Tylenol) 650 mg Q4H PRN PO TEMP > 100.4, PAIN 1-10; Start at 14:30 Albuterol/ Ipratropium (Duoneb Neb) 1 ampule Q6HR NEB INH Last administered on 02/11/18at 08:03; Start 02/10/18 at 16:00 Azithromycin (Zithromax) 500 mg DAILY PO ; Start 02/11/18 at 09:00 Azithromycin 500 mg/Sodium Chloride 250 ml @ 250 mls/hr ONCE ONCE IV Last administered on 02/10/18at 13:59; Start 02/10/18 at 13:15; Stop 02/10/18 at 14:14 ; Status DC Bisacodyl (Dulcolax Supp) 10 mg DAILY PRN RECTAL SEVERE CONSITIPATION; Start at 14:30 Ceftriaxone Sodium 1000 mg/ Sodium Chloride 100 ml @ 200 mls/hr Q24H IV ; Start 02/11/18 at 14:00 Clonidine (Catapres) 0.1 mg Q6H PRN PO SBP> OR = 180, DBP> OR = 100; Start at 17:15 Enoxaparin Sodium (Lovenox Inj) 40 mg Q24H SQ Last administered on 02/10/18at 18 :26; Start 02/10/18 at 16:00 Fenofibrate (Tricor) 48 mg DAILY PO ; Start 02/11/18 at 09:00 Fluticasone Propionate (Flonase Petr Spr) 1 spray BID EACH NARE ; Start 02/10/18 at 21:00 Indomethacin (Indocin Sr) 75 mg DAILY PO Last administered on 02/10/18at 15:48 ; Start 02/10/18 at 15:15 Lactulose (Lactulose Liq) 30 ml DAILY PRN PO SEVERE CONSITIPATION; Start at 14:30 Lorazepam (Ativan Inj) 2 mg UNSCH PRN IV PUSH SEE LABEL COMMENTS; Start at 15:15 Magnesium Hydroxide (Milk Of Magnesia Liq) 30 ml Q12H PRN PO Mild constipation ; Start 02/10/18 at 14:30 Methylprednisolone Sodium Succinate (SoluMEDROL INJ) 125 mg ONCE ONCE IV PUSH Last administered on 02/10/18at 12:32; Start 02/10/18 at 12:30; Stop 02/10/18 at 12:31; Status DC Naloxone HCl (Narcan Inj) 0.4 mg UNSCH PRN IV PUSH SEE LABEL COMMENTS; Start at 14:30 Ondansetron HCl (Zofran Inj) 4 mg Q6H PRN IVP NAUSEA OR VOMITING; Start at 14:30 Pravastatin Sodium (Pravachol) 40 mg DAILY PO Last administered on 02/10/18at 20 :45; Start 02/10/18 at 20:00 Senna/Docusate Sodium (Karmen-Colace) 1 tab BID PO ; Start 02/10/18 at 21:00 Sennosides (Senokot) 17.2 mg Q12H PRN PO Moderate constipation; Start 02/10/18 at 14:30 Sodium Chloride (NS Flush) 2 ml BID IV FLUSH ; Start 02/10/18 at 21:00 Urinary Catheter: No Vascular Central Line Catheter: No A/P Assessment and Plan 67-year-old male with CLL currently in workup process, hypothyroidism, osteoarthritis who presents after syncopal episode. This is his second syncopal episode since October 2017 and he notes that he possibly had seizure activity both times. No seizure workup has yet occurred. On workup in the ED patient found to have possible pneumonia given symptoms and CXR findings. Suspect initial viral etiology but this likely is transition to bacterial source at this time given chronicity. CTA negative for PE. Leukocytosis noted, but this is at patient's baseline if not improved. Last labs were 02/04/[address] Marie. Also noted to have ITZEL on admission. Echocardiogram from outpatient reviewed from 11/19/2017 showing normal EF 55-60% , mild MR, mild TR. Discharge Planning Patient admitted for IV antibiotics and close monitoring. He will also be monitored closely for seizure activity and have EEG. Anticipate a total 2-3 day inpatient course for CAP complicated by immunocompromised state and seizure w/u. SDW Dr. Aguirre Problem List: (1) Pneumonia ICD Codes: J18.9 - Pneumonia, unspecified organism Status: Acute Plan: Improving, on room air, continue management Patient presented with approximately 1 week history of upper respiratory symptoms which have worsened gradually. Syncopal episode today may have been related to acute infection. Patient is status post 1 L normal saline in the ED with workup notable for leukocytosis but interpretation is complicated by CLL diagnosis. Status post 125 milligrams Solu-Medrol IV 1 in ED. CXR showing small bilateral infiltrates in both lung mistry, CTA showing no PE and similar infiltrates. * Continue normal saline at 140cc/hr * Rocephin 1 g daily, Zithromax 100 mg daily to cover for pneumonia * Duo nebs every 6 hours scheduled, albuterol every 2 hours as needed * Continue fluticasone 2 sprays each nare daily * Patient is noted to have had Prevnar vaccine August 2015, pneumococcal vaccine November 2016. * Recheck CBC and BMP regularly, discontinue IV fluids once ITZEL resolved (2) Seizure ICD Codes: R56.9 - Unspecified convulsions Status: Acute Plan: No seizure-like activity since admission. We will continue to monitor and continue seizure precautions. EEG ordered and pending Hospital Course: Patient with possible first or second episode of seizure lasting approximately 1 minute. Possibly this was a syncopal episode the patient did have loss of bladder function during episode. No previous EEG workup. CT head negative on arrival to ED. Will initiate seizure precautions, give Ativan if needed (3) Syncopal episodes ICD Codes: R55 - Syncope and collapse Plan: Unclear etiology, possibly related to seizure or dehydration or acute infection. Will monitor closely as noted above. Telemetry. Echo reviewed from outpatient noted above. Will order cardiac enzymes overnight. (4) Chronic lymphocytic leukemia ICD Codes: C91.90 - Lymphoid leukemia, unspecified not having achieved remission Status: Acute Plan: Patient is noted to have decrease in his hemoglobin from 10-9 today. White count has decreased by approximately [address] Marie who recommends workup for acute hemolysis and thus haptoglobin, Jason studies, LDH was ordered today. ANC is 1638 today, dropped from yesterday Hematology consult placed for Dr. Marie who has agreed to see the patient Hospital course: Patient diagnosed approximately October 2017 for CLL. Currently receiving workup to include bone marrow biopsy next week, body scan at that time as well. Dr. Marie is local oncologist and patient also is being evaluated at [email or web address] in [place]. Not currently on any treatments. Leukocytosis noted with WBC approximately 64 at time of admission. Noted to have mild anemia and lower limit platelet count on admission, stable. * Notably ANC is 3550, will monitor closely * If ANC drops below 1000 will consider broad spectrum antibiotics to cover Pseudomonas and other GNR's given immunocompromised (5) ITZEL (acute kidney injury) ICD Codes: N17.9 - Acute kidney failure, unspecified Status: Acute Plan: Noted, mild, will monitor. Suspect due to dehydration. Will discontinue IV fluids given p.o. tolerated, monitor BMP (6) HLD (hyperlipidemia) ICD Codes: E78.5 - Hyperlipidemia, unspecified Status: Chronic Plan: Chronic, stable, continue home dose of simvastatin 20 mg daily and fenofibrate 145 mg daily (7) Fluids/Electrolytes/Nutrition/Prophylaxis Status: Acute Plan: Fluids: tolerating PO/NS @ 140ml/hr DC'd on 02/11. ITZEL noted on admission will monitor. Electrolytes: monitor and replete as needed Nutrition: Regular diet DVT Prophylaxis: Early ambulation. Lovenox 40mg subQ q24hr/bilateral SCDs GI Prophylaxis: None and PRN anti-HTN: Clonidine 0.1mg PO PRN for SBP > 180/ and/or DBP > 100 Problem Qualifiers (1) Pneumonia: Qualified Codes: J18.9 - Pneumonia, unspecified organism Rubina Ruiz MD Feb 11, 2018 08:30
[2018-02-11] MEDS: FENOFIBRATE 48 MG TAB PO SCH (08:31)
[2018-02-11] MEDS: SODIUM CHLORIDE 0.9% FLUSH 10 ML FLUSH IV FLUSH SCH ×2 (08:31→20:20)
--- NOTE | 2018-02-11 08:45 | EKG ---
Date Performed: 02/10/2018 Time Performed: 21:29:11 PTAGE: 67 years EKG: Sinus rhythm NORMAL ECG PREVIOUS TRACING : 02/10/2018 11.40 No significant change from previous tracing noted. DOCTOR: Alfredo Soler Interpretating Date/Time 02/11/2018 08:30:26
[2018-02-11] MEDS ORDERED: FENOFIBRATE 145 MG TAB PO SCH (09:00)
[2018-02-11] MEDS: FLUTICASONE PROPIONATE 50 MCG/ACT 16 GM NASAL SPRAY EACH NARE SCH ×2 (09:00→20:20)
[2018-02-11] MEDS: cefTRIAXone INJ 1,000 MG in SODIUM CHLORIDE 0.9% INJ 100 ML IV SCH (12:55)
--- NOTE | 2018-02-11 16:13 | EKG ---
Date Performed: 02/10/2018 Time Performed: 11:40:47 PTAGE: 67 years EKG: Sinus rhythm NORMAL ECG NO PREVIOUS TRACING DOCTOR: Alfredo Soler Interpretating Date/Time 02/11/2018 16:11:02
[2018-02-11] MEDS ORDERED: SODIUM CHLOR 0.9% 250 ML INJ 250 ML IV ONE (19:15)
--- NOTE | 2018-02-11 19:37 | MB ---
cc: Kaia Marie MD, Kara DATE OF CONSULT: 02/11/2018 REFERRING PHYSICIAN: Rubina Ruiz MD CHIEF COMPLAINT: Dr. Ruiz requested consultation for Mr. Mcclain with community-acquired pneumonia and history of chronic lymphocytic leukemia. HISTORY OF PRESENT ILLNESS: Mr. Mcclain is a 67-year-old man with no significant history except for an ankle injury in 1992. He presented with a syncopal episode late in October after playing golf in 82-degree weather. This was attributed to dehydration. At that time, he was found to have a lymphocytosis/leukocytosis, mild anemia and thrombocytopenia. He was diagnosed with chronic lymphocytic leukemia. His cardiac evaluation showed an echo with normal ejection fraction. Mr. Mcclain is undergoing evaluation for his chronic lymphocytic leukemia. We are contemplating treatment in light of his anemia and adenopathy. He was referred to an academic center and was seen by Dr. Saenz at [facility]. He is offered standard of care therapy with ibrutinib. In the meantime, Mr. Mcclain and his are planning a trip to [place] on a river cruise in March. He had elected to defer his treatment with ibrutinib until after. He is pending a bone marrow biopsy and staging evaluation at [facility] next week. He developed a cough and progressive symptoms. He developed fever. At day of the consultation, he had a feeling of warmth. He had several seconds when he went to the exam table to lie down and subsequently blacked out. His event was witnessed. He lost color, his eyes rolled back, he became incontinent. He had the episode of syncope that lasted about 30 seconds. There was no tonic-clonic movements. This was similar to this event back in October after playing golf. Evaluation so far showed CT scan of the head that showed no intracranial abnormality. CT angiogram showed his adenopathy. There was no pulmonary emboli. There is patchy airspace disease in the left lung consistent with his cough and upper respiratory symptoms. Hematology/oncology is consulted for his chronic lymphocytic leukemia. His white blood cell count is 54,000, hemoglobin 9.0, platelet count 133. His haptoglobin is elevated. His LDH is elevated. There seems to be no sign of hemolysis. His renal function is stable. His baseline GFR around 60%. Ms. Mcclain denies any chest pain. He was coughing, short of breath from his upper respiratory infection. He had a fever when he finally came in. He is feeling better now, on antibiotic therapy. He denies any urinary complaints. The rest of his review of systems is negative. PAST MEDICAL HISTORY: 1. Newly diagnosed chronic lymphocytic leukemia. 2. Chronic anemia. 3. Thrombocytopenia. 4. Adenopathy. 5. Arthritis. 6. Hypothyroidism. 7. Dyslipidemia. PAST SURGICAL HISTORY: Colonoscopy, hemorrhoid surgery, left ankle surgery, tonsillectomy. FAMILY HISTORY: Mother at age 50 with cirrhosis and tuberculosis. Father of throat cancer in his 50s. SOCIAL HISTORY: He is , lives with his . He was an environmental remediation specialist. He never smoked. He drinks occasionally. ALLERGIES: NO KNOWN DRUG ALLERGIES. CURRENT MEDICATIONS: Ceftriaxone, azithromycin, Tricor, Karmen-Colace, Flonase, Pravachol, Catapres, Lovenox, DuoNeb, Indocin. PHYSICAL EXAMINATION: VITAL SIGNS: Temperature 98.3, heart rate 87, respiratory rate 18, blood pressure 137/75. GENERAL: Mr. Mcclain is a well-developed, well-nourished, robust-appearing, man who looks his stated age. HEENT: His pupils are round, reactive to light and accommodation. Oropharynx is clear. NECK: Supple with cervical adenopathy. LUNGS: Clear. CARDIOVASCULAR: Reveals a normal rate and rhythm. ABDOMEN: Large and benign. EXTREMITIES: Lower extremities with no edema. NEUROLOGIC: Nonfocal. LABORATORY DATA: Described above. Blood culture from 02/10 is negative. Quantitative immunoglobulin shows a decrease in IgA and IgM. IgG is normal from November. Free light chain is slightly elevated. ASSESSMENT AND PLAN: Mr. Mcclain is a 67-year-old man with multiple medical problems. He is diagnosed with chronic lymphocytic leukemia and adenopathy associated with anemia. He is planning to start ibrutinib. He is pending a bone marrow biopsy for staging and next generation sequencing for prognostic information. In the meantime, he is admitted to the hospital for community-acquired pneumonia. He presented with cough and shortness of breath. CT angiogram is consistent with infiltrate in the left lung. He is feeling better after the antibiotic therapy support. He has been afebrile. His cultures have been negative. I anticipate he will continue his antibiotic therapy until resolution of his upper respiratory symptoms. His quantitative immunoglobulin will be checked. He has no evidence of hemolytic anemia. No transfusion is needed. We will monitor his cytopenias. His chronic lymphocytic leukemia is represented by the leukocytosis, primarily lymphocytosis. He is not neutropenic. We discussed the 2 syncopal events. It is not clear if this is a seizure versus syncope. We will consult both cardiology and neurology to assist in determining the nature of the events and how to prevent them. It is not clear how they are directly related to his chronic lymphocytic leukemia. He was diagnosed with chronic lymphocytic leukemia after [place] A CBC revealed laboratory abnormalities. MRI will be coordinated to assist neurology. He is on telemetry for monitoring. He has had no other syncopal events. MD LESTER Gee/DANNA , 07:05 PM , 07:35 PM
--- NOTE | 2018-02-11 20:14 | MG ---
cc: Daniel Franco MD REQUESTED BY: Dr. Ruiz INDICATION: An EEG was obtained on this 67-year-old patient being evaluated for syncope. FINDINGS: This EEG is showing lot of 8-10 per second alpha rhythms posteriorly. There are beta rhythms centrally and frontally. The background is reactive. There are some theta rhythms centrally during drowsiness. Overall, the background is symmetrical. Photic stimulation showed some mild bilateral driving response. Hyperventilation was not performed. INTERPRETATION: Normal awake and drowsy electroencephalogram. Daniel Franco MD OFC/SB , 07:54 PM , 08:12 PM
[2018-02-11] MEDS ORDERED: GADODIAMIDE PF 287 MG/ML 5 ML VIAL (for RAD MRI) IVCONTRAST ONE (23:07)
--- NOTE | 2018-02-11 23:45 | RADRPT ---
EXAM DATE/TIME: 02/11/2018 22:48 [facility] COMPARISON: CT BRAIN W/O CONTRAST, February 10, 2018, 13:26. INDICATIONS : Syncope and seizure. CONTRAST: 20 cc Omniscan (gadodiamide) IV MEDICAL HISTORY : Hypertension. Thrombocytopenia. SURGICAL HISTORY : Hemorrhoidectomy. Tonsillectomy. Right ankle sx. ENCOUNTER: Initial ACUITY: 1 day PAIN SCORE: 1/10 LOCATION: Bilateral cranial TECHNIQUE: Multiplanar, multisequence MRI of the brain was performed both prior to and following the administrat ion of paramagnetic contrast. FINDINGS: CEREBRUM: The ventricles are normal for age. No evidence of midline shift, mass lesion, hemorrhage or acute in farction. No extraaxial fluid collections are seen. The pituitary gland and suprasellar cistern are normal in configuration. WHITE MATTER: No significant signal abnormalities are seen in the white matter. POSTERIOR FOSSA: The cerebellum and brainstem are intact. The 4th ventricle is midline. The cerebellopontine angle is unremarkable. The cerebellar tonsils are normal in position. DIFFUSION IMAGING: No focal areas of restricted diffusion are seen. No evidence of acute infarction. EXTRACRANIAL: The visualized portions of the orbits are unremarkable. There is opacification of the ethmoids bilat erally. POST-CONTRAST: There are several thin vessels in the left frontal white matter with a prominent lateral feeding vess el, having appearance characteristic of venous angioma. No surrounding edema. CONCLUSION: 1. Venous angioma left frontal white matter. No evidence of mass effect or cerebral edema. 2. Bilateral ethmoid sinus disease. Trent Suh MD on February 11, 2018 at 23:30 Board Certified Radiologist. This report was verified electronically.
[2018-02-12] VITALS (12 sets, daily range): BP systolic 119–147; BP diastolic 65–80; PULSE 16–98; RESP 16–19; TEMP 98.1–100.1; O2SAT 94–97
[2018-02-12] MEDS: RESP: ALBUTEROL 2.5 MG/IPRATROPIUM 0.5 MG NEB (SCH) INH ×4 (05:06→22:23)
--- NOTE | 2018-02-12 07:50 | PD.CONS ---
HPI Consult Requested By Primary Care Physician Non-Staff History of Present Illness 67-year-old male with a past medical history of CLL, HLD who presented for syncope. Patient states that a few months ago he had an episode of syncope after golfing all day and not drinking much. He states he felt diaphoretic, slumped over, and states a friend states he lost consciousness for less than a minute. He states that for the past week he has been having a cough, went to the doctor's office on Saturday, felt diaphoretic, and had another episode of loss of consciousness witnessed by his that lasted less than a minute. No witnesses have told him that he has had any generalized shaking with these episodes. He denies any associated chest pain, shortness of breath, palpitations. He was found to be dehydrated with pneumonia upon presentation this admission. Review of Systems Negative except as stated in the HPI Past Family Social History Allergies: Coded Allergies: No Known Allergies (Unverified Adverse Reaction, Unknown, 02/10/18) Past Medical History Osteoarthritis Hemorrhoids Pneumonia x 2 (11-day hospitalizations for both, over 30 years ago) Leukocytosis/lymphocytosis 10/2017: WBC 60 Normocytic anemia Thrombocytopenia Dyslipidemia Past Surgical History Colonoscopy 1999 -refuses to have any more Hemorrhoidectomy 2008 Repair of right ankle/foot in 1987 after accident Tonsillectomy 1954 Reported Medications Reported Meds & Active Scripts Active Lo[place]ba 3 500 500 mg (Lookeba-3 Fatty Acids) 500 Mg (200 Mg-300 Mg)-1,000 Mg Cap 1 G PO DAILY Fenofibrate 145 Mg Tab 145 Mg PO DAILY Simvastatin 20 Mg Tab 20 Mg PO DAILY Indomethacin ER (Indomethacin) 75 Mg Caper 75 Mg PO DAILY Take with food, milk, or antacids to decrease stomach adverse effects. Fluticasone Nasal [place] 50 Mcg/Act Naspr 50 Mcg EACH NARE BID 50 mcg/spray Reported Coq-10 (Coenzyme Q10 (Ubidecarenone)) 400 Mg Cap 100 Mg PO DAILY Active Ordered Medications Current Medications Medications (Trade) Dose Ordered Sig/Mnudo Route Start Time Stop Time Status Last Admin (NS Flush) 2 ml UNSCH PRN IV FLUSH 02/10/18 14:30 (NS Flush) 2 ml BID IV FLUSH 02/10/18 21:00 02/11/18 20:20 (Tylenol) 650 mg Q4H PRN PO 02/10/18 14:30 (Zofran Inj) 4 mg Q6H PRN IVP 02/10/18 14:30 (Lovenox Inj) 40 mg Q24H SQ 02/10/18 16:00 02/10/18 18:26 (Narcan Inj) 0.4 mg UNSCH PRN IV PUSH 02/10/18 14:30 (Karmen-Colace) 1 tab BID PO 02/10/18 21:00 02/11/18 20:20 (Milk Of Magnesia Liq) 30 ml Q12H PRN PO 02/10/18 14:30 (Senokot) 17.2 mg Q12H PRN PO 02/10/18 14:30 (Dulcolax Supp) 10 mg DAILY PRN RECTAL 02/10/18 14:30 (Lactulose Liq) 30 ml DAILY PRN PO 02/10/18 14:30 (Flonase Petr Spr) 1 spray BID EACH NARE 02/10/18 21:00 02/11/18 20:20 (Indocin Sr) 75 mg DAILY PO 02/10/18 15:15 02/11/18 08:30 Ceftriaxone Sodium 1000 mg/ Sodium Chloride 100 ml @ 200 mls/hr Q24H IV 02/11/18 14:00 02/11/18 12:55 (Zithromax) 500 mg DAILY PO 02/11/18 09:00 02/11/18 08:30 (Tricor) 48 mg DAILY PO 02/11/18 09:00 02/11/18 08:31 (Pravachol) 40 mg DAILY PO 02/10/18 20:00 02/11/18 08:30 (Ativan Inj) 2 mg UNSCH PRN IV PUSH 02/10/18 15:15 (Duoneb Neb) 1 ampule Q6HR NEB INH 02/10/18 16:00 02/12/18 05:06 (Catapres) 0.1 mg Q6H PRN PO 02/10/18 17:15 Family History Parents both MGM . MGF at age 70 PGM . PGF . 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 Drinks socially. Patient had Prevnar vaccine 2014. Pneumovax 2016. Physical Exam Vital Signs Vital Signs Date Time Temp Pulse Resp B/P (MAP) Pulse Ox O2 Delivery O2 Flow Rate FiO2 02/12/18 05:43 98.3 86 17 141/79 (99) 96 02/12/18 04:00 74 02/12/18 00:02 98.1 92 16 136/69 (91) 94 02/12/18 00:00 96 02/11/18 20:15 94 21 02/11/18 20:12 99.5 99 18 158/82 (107) 93 02/11/18 20:10 95 02/11/18 17:06 98.3 87 18 137/75 (95) 96 02/11/18 14:14 75 02/11/18 13:00 78 02/11/18 12:00 80 02/11/18 11:18 97.2 81 18 128/70 (89) 93 02/11/18 10:00 81 02/11/18 09:00 90 02/11/18 08:03 93 21 02/11/18 08:00 98.6 79 18 126/76 (93) 100 02/11/18 08:00 78 Physical Exam GENERAL: Well-developed well-nourished. In no acute distress. NECK: No carotid bruits. No JVD. CARDIOVASCULAR: Regular rate and rhythm. No murmur appreciated. RESPIRATORY: No accessory muscle use. Clear to auscultation. Breath sounds equal bilaterally. MUSCULOSKELETAL: No clubbing or cyanosis. No edema. NEUROLOGICAL: Awake and alert. Normal speech. Laboratory Laboratory Tests Test 02/11/18 12:27 02/11/18 19:10 Haptoglobin 265 Lactate Dehydrogenase 588 Total Protein 7.2 Immunoglobulin G Total 819 Immunoglobulin A 50 Immunoglobulin M 32 Date/Time Source Procedure Growth Status 02/10/18 11:47 Blood Peripheral Aerobic Blood Culture - Preliminary NO GROWTH IN 1 DAY Resulted 02/10/18 11:47 Blood Peripheral Anaerobic Blood Culture - Preliminary NO GROWTH IN 1 DAY Resulted Result Diagram: 02/11/18 0135 02/11/18 0730 Imaging Last Impressions Brain MRI 02/11/18 0000 Signed Impressions: Service Date/Time: Sunday, February 11, 2018 22:48 - CONCLUSION: 1. Venous angioma left frontal white matter. No evidence of mass effect or cerebral edema. 2. Bilateral ethmoid sinus disease. Trent Suh MD Chest X-Ray 3/19/18 1138 Signed Impressions: Service Date/Time: Saturday, February 10, 2018 12:44 - CONCLUSION: Multiple scattered nonspecific small infiltrates in both lung mistry. Kvng Reyes MD Head CT 02/10/18 0000 Signed Impressions: Service Date/Time: Saturday, February 10, 2018 13:26 - CONCLUSION: 1. No acute intracranial abnormality is identified. Mikhail St MD CT Angiography 02/10/18 0000 Signed Impressions: Service Date/Time: Saturday, February 10, 2018 13:29 - CONCLUSION: Axillary, mediastinal and monica hepatis adenopathy also suspicious for neoplastic process. There is no central pulmonary emboli Patchy airspace disease probably left lung. Moderate coronary calcifications. Ugo St MD FACR Assessment and Plan Assessment and Plan 67-year-old male with a past medical history of CLL, HLD who presented for syncope Syncope: Possibly vasovagal secondary to infection and dehydration. EKG and telemetry with no significant arrhythmia. Check echocardiogram to evaluate cardiac structure and function. Consider outpatient Holter/event monitor. Prashanth Castro Feb 12, 2018 07:50
[2018-02-12] MEDS: FLUTICASONE PROPIONATE 50 MCG/ACT 16 GM NASAL SPRAY EACH NARE SCH ×2 (08:57→19:57)
[2018-02-12] MEDS: AZITHROMYCIN 250 MG TAB PO SCH (08:58)
[2018-02-12] MEDS: DOCUSATE SODIUM 50 MG/SENNA 8.6 MG TAB PO SCH ×2 (08:58→19:58)
[2018-02-12] MEDS: FENOFIBRATE 48 MG TAB PO SCH (08:58)
[2018-02-12] MEDS: SODIUM CHLORIDE 0.9% FLUSH 10 ML FLUSH IV FLUSH SCH ×2 (08:58→19:58)
[2018-02-12] MEDS: INDOMETHACIN 75 MG CONTROLLED RELEASE CAP PO SCH (08:58)
[2018-02-12] MEDS: PRAVASTATIN SOD 40 MG TAB PO SCH (08:58)
--- NOTE | 2018-02-12 13:05 | HHI.FPPN ---
Subjective Remarks Patient was seen and examined this morning. He states he feels "great". He denies fever,chills, nausea, vomiting, shortness of breath, chest pain and he wants to go home today. No seizure-like activity since hospitalization. MRI and EEG were reviewed with patient, with the former notable for venous angioma and no obvious signs of stroke, bleed, or tumor. He states that he will be going to [place] on Saturday of next week for his bone marrow biopsy and scans. Objective Vitals Vital Signs Date Time Temp Pulse Resp B/P (MAP) Pulse Ox O2 Delivery O2 Flow Rate FiO2 02/12/18 09:39 95 21 02/12/18 08:00 98.5 95 18 144/79 (100) 97 02/12/18 05:43 98.3 86 17 141/79 (99) 96 02/12/18 04:00 74 02/12/18 00:02 98.1 92 16 136/69 (91) 94 02/12/18 00:00 96 02/11/18 20:15 94 21 02/11/18 20:12 99.5 99 18 158/82 (107) 93 02/11/18 20:10 95 02/11/18 17:06 98.3 87 18 137/75 (95) 96 02/11/18 14:14 75 02/11/18 13:00 78 I/O 02/11/18 02/11/18 02/11/18 02/12/18 02/12/18 02/12/18 07:00 15:00 23:00 07:00 15:00 23:00 Intake Total 1850 ml 1188 ml 960 ml Balance 1850 ml 1188 ml 960 ml Intake Oral 720 ml 960 ml IV Total 1130 ml 1188 ml # Voids 2 3 # Bowel Movements 1 Result Diagram: 02/11/18 0135 02/11/18 0730 Imaging Last Impressions Brain MRI 02/11/18 0000 Signed Impressions: Service Date/Time: Sunday, February 11, 2018 22:48 - CONCLUSION: 1. Venous angioma left frontal white matter. No evidence of mass effect or cerebral edema. 2. Bilateral ethmoid sinus disease. Trent Suh MD Chest X-Ray 02/10/18 1138 Signed Impressions: Service Date/Time: Saturday, February 10, 2018 12:44 - CONCLUSION: Multiple scattered nonspecific small infiltrates in both lung mistry. Kvng Reyes MD Head CT 02/10/18 0000 Signed Impressions: Service Date/Time: Saturday, February 10, 2018 13:26 - CONCLUSION: 1. No acute intracranial abnormality is identified. Mikhail St MD CT Angiography 02/10/18 0000 Signed Impressions: Service Date/Time: Saturday, February 10, 2018 13:29 - CONCLUSION: Axillary, mediastinal and monica hepatis adenopathy also suspicious for neoplastic process. There is no central pulmonary emboli Patchy airspace disease probably left lung. Moderate coronary calcifications. Ugo St MD FACR Objective Remarks GEN: Well-developed, well-nourished patient. No acute distress. Sitting up in a chair. He is comfortable. SKIN: No rashes, ecchymoses or lesions. Warm and dry. CV: Regular rate and rhythm without obvious murmurs LUNGS: Mild bibasilar crackles. No wheezes. Normal respiratory effort. GI: Soft, nondistended. Bowel sounds present. EXT: No edema. No calf tenderness. NEURO/PSYCH: Awake, alert. Appropriate insight and judgment. Normal speech Medications and IVs Inpatient Medications Acetaminophen (Tylenol) 650 mg Q4H PRN PO TEMP > 100.4, PAIN 1-10; Start at 14:30 Albuterol/ Ipratropium (Duoneb Neb) 1 ampule Q6HR NEB INH Last administered on 02/12/18at 09:37; Start 02/10/18 at 16:00 Azithromycin (Zithromax) 500 mg DAILY PO Last administered on 02/12/18at 08:58; Start 02/11/18 at 09:00 Azithromycin 500 mg/Sodium Chloride 250 ml @ 250 mls/hr ONCE ONCE IV Last administered on 02/10/18at 13:59; Start 02/10/18 at 13:15; Stop 02/10/18 at 14:14 ; Status DC Bisacodyl (Dulcolax Supp) 10 mg DAILY PRN RECTAL SEVERE CONSITIPATION; Start at 14:30 Ceftriaxone Sodium 1000 mg/ Sodium Chloride 100 ml @ 200 mls/hr Q24H IV Last administered on 02/11/18at 12:55; Start 02/11/18 at 14:00 Clonidine (Catapres) 0.1 mg Q6H PRN PO SBP> OR = 180, DBP> OR = 100; Start at 17:15 Enoxaparin Sodium (Lovenox Inj) 40 mg Q24H SQ Last administered on 02/10/18at 18 :26; Start 02/10/18 at 16:00 Fenofibrate (Tricor) 48 mg DAILY PO Last administered on 02/12/18at 08:58; Start 02/11/18 at 09:00 Fluticasone Propionate (Flonase Eptr Spr) 1 spray BID EACH NARE Last administered on 02/12/18 08:57; Start 02/10/18 at 21:00 Indomethacin (Indocin Sr) 75 mg DAILY PO Last administered on 02/12/18 08:58 ; Start 02/10/18 at 15:15 Lactulose (Lactulose Liq) 30 ml DAILY PRN PO SEVERE CONSITIPATION; Start at 14:30 Lorazepam (Ativan Inj) 2 mg UNSCH PRN IV PUSH SEE LABEL COMMENTS; Start at 15:15 Magnesium Hydroxide (Milk Of Magnesia Liq) 30 ml Q12H PRN PO Mild constipation ; Start 02/10/18 at 14:30 Methylprednisolone Sodium Succinate (SoluMEDROL INJ) 125 mg ONCE ONCE IV PUSH Last administered on 02/10/18at 12:32; Start 02/10/18 at 12:30; Stop 02/10/18 at 12:31; Status DC Naloxone HCl (Narcan Inj) 0.4 mg UNSCH PRN IV PUSH SEE LABEL COMMENTS; Start at 14:30 Ondansetron HCl (Zofran Inj) 4 mg Q6H PRN IVP NAUSEA OR VOMITING; Start at 14:30 Pravastatin Sodium (Pravachol) 40 mg DAILY PO Last administered on 02/12/18at 08 :58; Start 02/10/18 at 20:00 Senna/Docusate Sodium (Karmen-Colace) 1 tab BID PO Last administered on at 08:58; Start 02/10/18 at 21:00 Sennosides (Senokot) 17.2 mg Q12H PRN PO Moderate constipation; Start 02/10/18 at 14:30 Sodium Chloride 250 ml @ 250 mls/hr BOLUS ONCE IV Last administered on at 22:25; Start 02/11/18 at 19:15; Stop 02/11/18 at 20:14; Status DC Sodium Chloride (NS Flush) 2 ml BID IV FLUSH Last administered on 02/12/18at 08: 58; Start 02/10/18 at 21:00 Urinary Catheter: No Vascular Central Line Catheter: No A/P Assessment and Plan 67-year-old male with CLL currently in workup process, hypothyroidism, osteoarthritis who presents after syncopal episode. This is his second syncopal episode since October 2017 and he notes that he possibly had seizure activity both times. No seizure workup has yet occurred. On workup in the ED patient found to have possible pneumonia given symptoms and CXR findings. Suspect initial viral etiology but this likely is transition to bacterial source at this time given chronicity. CTA negative for PE. Leukocytosis noted, but this is at patient's baseline if not improved. Last labs were 02/04/[address] Marie. Also noted to have ITZEL on admission. Echocardiogram from outpatient reviewed from 11/19/2017 showing normal EF 55-60% , mild MR, mild TR. Discharge Planning Patient admitted for IV antibiotics and close monitoring. He is also been closely monitored for seizure activity which has not had. EEG is negative. MRI is negative aside from venous angioma which is generally benign. Patient is ready to go home today but pending clearance from specialists. SDW Dr. Aguirre Problem List: (1) Pneumonia ICD Codes: J18.9 - Pneumonia, unspecified organism Status: Acute Plan: Improving, on room air, continue management. Blood cultures are negative. Clinically patient feels he is improving. Would be reasonable to discharge patient on outpatient therapy once cleared by hematology. Hospital Course: Patient presented with approximately 1 week history of upper respiratory symptoms which have worsened gradually. Syncopal episode today may have been related to acute infection. Patient is status post 1 L normal saline in the ED with workup notable for leukocytosis but interpretation is complicated by CLL diagnosis. Status post 125 milligrams Solu-Medrol IV 1 in ED. CXR showing small bilateral infiltrates in both lung mistry, CTA showing no PE and similar infiltrates. * Continue normal saline at 140cc/hr * Rocephin 1 g daily, Zithromax 100 mg daily to cover for pneumonia * Duo nebs every 6 hours scheduled, albuterol every 2 hours as needed * Continue fluticasone 2 sprays each nare daily * Patient is noted to have had Prevnar vaccine August 2015, pneumococcal vaccine November 2016. * Recheck CBC and BMP regularly, discontinue IV fluids once ITZEL resolved (2) Seizure ICD Codes: R56.9 - Unspecified convulsions Status: Acute Plan: No seizure-like activity since admission. We will continue to monitor and continue seizure precautions. EEG negative. MRI negative aside from venous angioma which is likely congenital and benign. Neurology consulted, pending evaluation, appreciate recommendations Hospital Course: Patient with possible first or second episode of seizure lasting approximately 1 minute. Possibly this was a syncopal episode the patient did have loss of bladder function during episode. No previous EEG workup. CT head negative on arrival to ED. Will initiate seizure precautions, give Ativan if needed (3) Syncopal episodes ICD Codes: R55 - Syncope and collapse Plan: Unclear etiology, possibly related to seizure or dehydration or acute infection. Will monitor closely as noted above. Telemetry. Echo reviewed from outpatient noted above. Will order cardiac enzymes overnight. (4) Chronic lymphocytic leukemia ICD Codes: C91.90 - Lymphoid leukemia, unspecified not having achieved remission Status: Acute Plan: Patient is noted to have decrease in his hemoglobin from 10-9 today. White count has decreased by approximately [address] Marie who recommends workup for acute hemolysis and thus haptoglobin, Jason studies, LDH was ordered today. ANC downtrending, will monitor Hematology consulted, recommending cardiology and neurology evaluations Hospital course: Patient diagnosed approximately October 2017 for CLL. Currently receiving workup to include bone marrow biopsy next week, body scan at that time as well. Dr. Marie is local oncologist and patient also is being evaluated at [facility] [place] in [place]. Not currently on any treatments. Leukocytosis noted with WBC approximately 64 at time of admission. Noted to have mild anemia and lower limit platelet count on admission, stable. * Notably ANC is 3550, will monitor closely * If ANC drops below 1000 will consider broad spectrum antibiotics to cover Pseudomonas and other GNR's given immunocompromised (5) ITZEL (acute kidney injury) ICD Codes: N17.9 - Acute kidney failure, unspecified Status: Acute Plan: Noted, mild on admission, now resolved. Suspect due to dehydration. Will discontinue IV fluids given p.o. tolerated, monitor BMP (6) HLD (hyperlipidemia) ICD Codes: E78.5 - Hyperlipidemia, unspecified Status: Chronic Plan: Chronic, stable, continue home dose of simvastatin 20 mg daily and fenofibrate 145 mg daily (7) Fluids/Electrolytes/Nutrition/Prophylaxis Status: Acute Plan: Fluids: tolerating PO/NS @ 140ml/hr DC'd on 02/11. IV bolus one liter given . Electrolytes: monitor and replete as needed Nutrition: Regular diet DVT Prophylaxis: Early ambulation. Lovenox 40mg subQ q24hr/bilateral SCDs GI Prophylaxis: None and PRN anti-HTN: Clonidine 0.1mg PO PRN for SBP > 180/ and/or DBP > 100 Problem Qualifiers (1) Pneumonia: Qualified Codes: J18.9 - Pneumonia, unspecified organism Rubina Ruiz MD Feb 12, 2018 13:05
--- NOTE | 2018-02-12 13:49 | ECHRPT ---
Indication: CARDIOMYOPATHY CONCLUSIONS The left ventricular systolic function is normal with an estimated ejection fraction in the range of 60-65%. Normal left ventricular size. Wall thickness is measured at the upper limits of normal. No regional wall motion abnormalities are present. Mitral annular calcification is present. Aortic valve sclerosis is present. There is trace tricuspid valve regurgitation. The estimated pulmonary arterial pressure is 28 mmHg. BP: 141 / 79 HR: 86 Rhythm: Sinus MEASUREMENTS (Male / Female) Normal Values Technical Quality:Fair 2D ECHO LV Diastolic Diameter PLAX 5.1 cm 4.2 - 5.9 / 3.9 - 5.3 cm LV Systolic Diameter PLAX 3.3 cm IVS Diastolic Thickness 1.2 cm 0.6 - 1.0 / 0.6 - 0.9 cm LVPW Diastolic Thickness 1.2 cm 0.6 - 1.0 / 0.6 - 0.9 cm LV Relative Wall Thickness 0.5 RV Internal Dim ED PLAX 3.2 cm LVOT Diameter 2.0 cm LA Systolic Diameter LX 3.5 cm 3.0 - 4.0 / 2.7 - 3.8 cm LV Ejection Fraction MOD 4C 65.4 % LV Cardiac Index MOD 4C 2661.9 cm/minm LV Ejection Fraction 4C AL 69.1 % LV Cardiac Index 4C AL 2960.5 cm/minm M-MODE Aortic Root Diameter MM 3.4 cm LA Systolic Diameter MM 3.9 cm LA Ao Ratio MM 1.1 AV Cusp Separation MM 1.8 cm DOPPLER AV Peak Velocity 162.0 cm/s AV Peak Gradient 10.5 mmHg LVOT Peak Velocity 102.0 cm/s LVOT Peak Gradient 4.2 mmHg AV Area Cont Eq pk 2.0 cm MV Area PHT 3.8 cm Mitral E Point Velocity 90.8 cm/s Mitral A Point Velocity 69.1 cm/s Mitral E to A Ratio 1.3 LV E' Lateral Velocity 14.1 cm/s Mitral E to LV E' Lateral Ratio 6.4 LV E' Septal Velocity 9.5 cm/s Mitral E to LV E' Septal Ratio 9.6 TR Peak Velocity 212.0 cm/s TR Peak Gradient 18.0 mmHg Right Atrial Pressure 10.0 mmHg Pulmonary Artery Systolic Pressu 28.0 mmHg Right Ventricular Systolic Press 28.0 mmHg PV Peak Velocity 124.0 cm/s PV Peak Gradient 6.2 mmHg FINDINGS LEFT VENTRICLE The left ventricular systolic function is normal with an estimated ejection fraction in the range of 60-65%. Normal left ventricular size. Wall thickness is measured at the upper limits of normal. No regional wall motion abnormalities are present. RIGHT VENTRICLE Normal right ventricular size and systolic function. LEFT ATRIUM The left atrial size is normal. RIGHT ATRIUM The right atrial size is normal. ATRIAL SEPTUM Normal atrial septal thickness without atrial level shunting by limited color doppler interrogation. AORTA The aortic root and proximal ascending aorta are normal in size on limited imaging. MITRAL VALVE Mitral annular calcification is present. AORTIC VALVE Trileaflet aortic valve. Aortic valve sclerosis is present. TRICUSPID VALVE Structurally normal tricuspid valve. There is trace tricuspid valve regurgitation. The estimated pulmonary arterial pressure is 28 mmHg. PULMONARY VALVE No pulmonary valve regurgitation or stenosis. VESSELS The inferior vena cava is normal in size. PERICARDIUM No pericardial effusion. Dhaval Carreno MD, FACC (Electronically Signed) Final Date:12 February 2018 13:49
[2018-02-12] MEDS: cefTRIAXone INJ 1,000 MG in SODIUM CHLORIDE 0.9% INJ 100 ML IV SCH (14:57)
[2018-02-12 15:58] LABS: AUTOMATED NEUTROPHIL # 2.6 TH/MM3 (1.8-7.7); BASOPHIL # 0.1 TH/MM3 (0-0.2); BASOPHIL % 0.1 % (0.0-2.0); EOSINOPHIL # 0.2 TH/MM3 (0-0.4); EOSINOPHIL % 0.5 % (0.0-4.0); HEMATOCRIT 27.1 % (39.0-51.0); HEMOGLOBIN 9.3 GM/DL (13.0-17.0); LYMPHOCYTE # 35.7 TH/MM3 (1.0-4.8); MEAN CELL VOLUME 91.2 FL (80.0-100.0); MEAN CORPUSCULAR HEMOGLOBIN 31.2 PG (27.0-34.0); MEAN CORPUSCULAR HGB CONC 34.2 % (32.0-36.0); MEAN PLATELET VOLUME 7.6 FL (7.0-11.0); MONO % 0.6 % (0.0-8.0); MONOCYTE # 0.2 TH/MM3 (0-0.9); NEUT % 6.8 % (16.0-70.0); PLATELET COUNT 123 TH/MM3 (150-450); RED BLOOD COUNT 2.97 MIL/MM3 (4.50-5.90); RED CELL DISTRIBUTION WIDTH 18.2 % (11.6-17.2); WHITE BLOOD COUNT 38.9 TH/MM3 (4.0-11.0)
[2018-02-12 16:20] LABS: CALCIUM 8.2 MG/DL (8.5-10.1); CREATININE 1.12 MG/DL (0.60-1.30)
[2018-02-12] MEDS: ENOXAPARIN SODIUM 40 MG/0.4 ML SYRINGE SQ SCH (17:04)
[2018-02-12 18:20] LABS: BANDS 1 % (0-6); NEUTROPHIL # MANUAL DIFF 0.8 TH/MM3 (1.8-7.7); POLYS (SEG NEUTROPHILS) 1 % (16-70)
[2018-02-12 18:21] LABS: LYMPHOCYTES 98 % (9-44); OVALOCYTES 1+ (NORMAL)
--- NOTE | 2018-02-12 18:54 | MB ---
cc: Darrell Schneider MD, PhD DATE: REASON FOR CONSULTATION: Syncope, rule out seizure. HISTORY OF PRESENT ILLNESS: Mr. Mcclain is a very nice 67-year-old man with recently diagnosed CLL who has had 2 episodes of loss of conscious. The first was a couple weeks ago after a day of playing golf. It was hot out. He thought he might have gotten dehydrated. He was standing in a restaurant, suddenly felt lightheaded and went outside and passed out. He had some bladder incontinence. It was not witnessed, but he was out for only a few minutes or maybe a few seconds with no postictal state. He had a second episode in the hospital. He was sitting upright. He felt somewhat lightheaded, started seeing spots. He went to lie down. By the time he laid down, he passed out for a brief period of time. His said he had some twitching activity of the upper extremities. He was out for less than a minute or so, but had some bladder incontinence, but no postictal state. He was back to normal quickly. PAST MEDICAL HISTORY: He has a history of newly diagnosed CLL, chronic anemia, thrombocytopenia, adenopathy, hypothyroidism, dyslipidemia, colonoscopy, hemorrhoid surgery, left ankle surgery, tonsillectomy. MEDICATIONS: Currently are ceftriaxone, Zithromax, Tricor, Karmen-Colace, Flonase, Pravachol, Catapres, Lovenox, DuoNeb, Indocin, Ativan p.r.n. PHYSICAL EXAMINATION: VITAL SIGNS: His blood pressure is 141/79 supine, 144/79 sitting, pulse 95, respirations 18, temperature 98 degrees. NEUROLOGIC: Higher cortical functions are normal. Cranial nerves intact. Motor exam, no focal deficit is noted. Cerebellar testing normal. DIAGNOSTIC DATA: MRI brain normal. CT angio of the chest, no evidence of PE. EEG is normal. CT brain normal. LABORATORY DATA: The white count of 38,900, hemoglobin 9.3, hematocrit 27%, platelet count is 123,000. Sodium is 142, potassium 3.8, chloride 109, CO2 is 23, BUN is 26, creatinine 1.12, GFR 65, glucose 121, calcium 8.2. IMPRESSION: Syncope, probably related to dehydration. I doubt seizure based on the history. RECOMMENDATION: Recommend cardiology evaluation to rule out cardiogenic syncope. We will also obtain a carotid ultrasound to rule out carotid stenosis. Darrell Schneider MD, PhD MINE/SB , 06:32 PM , 06:52 PM
--- NOTE | 2018-02-12 19:32 | PD.ONC.PN ---
Subjective Subjective Remarks "I have chills" Noted evaluation by cardiology and neurology. Pt feeling better eager to go home. Objective Data Date Time Temp Pulse Resp B/P (MAP) Pulse Ox O2 Delivery O2 Flow Rate FiO2 02/12/18 17:06 98.4 90 18 128/80 (96) 96 02/12/18 13:12 98.1 83 18 126/65 (85) 02/12/18 09:39 95 21 02/12/18 08:00 98.5 95 18 144/79 (100) 97 02/12/18 05:43 98.3 86 17 141/79 (99) 96 02/12/18 04:00 74 02/12/18 00:02 98.1 92 16 136/69 (91) 94 02/12/18 00:00 96 02/11/18 20:15 94 21 02/11/18 20:12 99.5 99 18 158/82 (107) 93 02/11/18 20:10 95 02/12/18 02/12/18 02/12/18 07:00 15:00 23:00 Intake Total 960 ml Balance 960 ml Result Diagram: 02/12/18 1510 02/12/18 1510 Laboratory Results Laboratory Tests Test 02/12/18 15:10 White Blood Count 38.9 TH/MM3 Red Blood Count 2.97 MIL/MM3 Hemoglobin 9.3 GM/DL Hematocrit 27.1 % Mean Corpuscular Volume 91.2 FL Mean Corpuscular Hemoglobin 31.2 PG Mean Corpuscular Hemoglobin Concent 34.2 % Red Cell Distribution Width 18.2 % Platelet Count 123 TH/MM3 Mean Platelet Volume 7.6 FL Neutrophils (%) (Auto) 6.8 % Lymphocytes (%) (Auto) 92.0 % Monocytes (%) (Auto) 0.6 % Eosinophils (%) (Auto) 0.5 % Basophils (%) (Auto) 0.1 % Neutrophils # (Auto) 2.6 TH/MM3 Lymphocytes # (Auto) 35.7 TH/MM3 Monocytes # (Auto) 0.2 TH/MM3 Eosinophils # (Auto) 0.2 TH/MM3 Basophils # (Auto) 0.1 TH/MM3 CBC Comment AUTO DIFF Differential Total Cells Counted 100 Neutrophils % (Manual) 1 % Band Neutrophils % 1 % Lymphocytes % 98 % Neutrophils # (Manual) 0.8 TH/MM3 Differential Comment FINAL DIFF MANUAL Platelet Estimate LOW Platelet Morphology Comment NORMAL Ovalocytes 1+ Blood Urea Nitrogen 26 MG/DL Creatinine 1.12 MG/DL Random Glucose 121 MG/DL Calcium Level 8.2 MG/DL Sodium Level 142 MEQ/L Potassium Level 3.8 MEQ/L Chloride Level 109 MEQ/L Carbon Dioxide Level 23.0 MEQ/L Anion Gap 10 MEQ/L Estimat Glomerular Filtration Rate 65 ML/MIN Culture Results Microbiology Date/Time Source Procedure Growth Status 02/10/18 11:47 Blood Peripheral Aerobic Blood Culture - Preliminary NO GROWTH IN 2 DAYS Resulted 02/10/18 11:47 Blood Peripheral Anaerobic Blood Culture - Preliminary NO GROWTH IN 2 DAYS Resulted 02/10/18 11:42 Blood Peripheral Aerobic Blood Culture - Preliminary NO GROWTH IN 2 DAYS Resulted 02/10/18 11:42 Blood Peripheral Anaerobic Blood Culture - Preliminary NO GROWTH IN 2 DAYS Resulted Administered Medications Medications (Trade) Dose Ordered Sig/Mundo Route PRN Reason Start Time Stop Time Status Last Admin Dose Admin Sodium Chloride (NS Flush) 2 ml BID IV FLUSH 02/10/18 21:00 02/12/18 08:58 Enoxaparin Sodium (Lovenox Inj) 40 mg Q24H SQ 02/10/18 16:00 02/12/18 17:04 Senna/Docusate Sodium (Karmen-Colace) 1 tab BID PO 02/10/18 21:00 02/12/18 08:58 Fluticasone Propionate (Flonase Petr Spr) 1 spray BID EACH NARE 02/10/18 21:00 02/12/18 08:57 Indomethacin (Indocin Sr) 75 mg DAILY PO 02/10/18 15:15 02/12/18 08:58 Ceftriaxone Sodium 1000 mg/ Sodium Chloride 100 ml @ 200 mls/hr Q24H IV 02/11/18 14:00 02/12/18 14:57 Azithromycin (Zithromax) 500 mg DAILY PO 02/11/18 09:00 02/12/18 08:58 Fenofibrate (Tricor) 48 mg DAILY PO 02/11/18 09:00 02/12/18 08:58 Pravastatin Sodium (Pravachol) 40 mg DAILY PO 02/10/18 20:00 02/12/18 08:58 Albuterol/ Ipratropium (Duoneb Neb) 1 ampule Q6HR NEB INH 02/10/18 16:00 02/12/18 15:58 Objective Remarks GENERAL: Well-nourished, well-developed patient. SKIN: Warm and dry. Small shoddy cervical adenopathy. HEAD: Normocephalic. EYES: No scleral icterus. No injection or drainage. NECK: Supple, trachea midline. No JVD or lymphadenopathy. LYMPHATIC: No adenopathy. CARDIOVASCULAR: Regular rate and rhythm without murmurs. RESPIRATORY: Breath sounds equal bilaterally. No accessory muscle use. GASTROINTESTINAL: Abdomen soft, large, distended benign. EXTREMITIES: No cyanosis, or edema. MUSCULOSKELETAL: Adequate muscle tone. NEUROLOGICAL: No obvious focal deficit. Awake, alert, and oriented x3. PSYCHIATRIC: Appropriate mood and affect; insight and judgment normal. Assessment/Plan Problem List: (1) Chronic lymphocytic leukemia ICD Codes: C91.90 - Lymphoid leukemia, unspecified not having achieved remission Status: Acute Plan: Lymphocytosis with adenopathy associated with anemia. Pt is a candidate to start systemic therapy and has option of Ibrutinib. Pending staging and prognostic evaluation at [facility] next week. Course complicated by fever and pneumonia. Neurology and Cardiology consultation appreciated. Both suggestion dehydration and vagal event likely etiology- unlikely seizure, unlikely arrythmia. Noted negative EEG. MRI negative. Anticipate pt can go home tomorrow with abx per primary team. He can continue Ceftriaxone in outpt clinic or home care. OK for DC home when OK by primary team to continue work up as out pt. Kaia Marie MD Feb 12, 2018 19:32
--- NOTE | 2018-02-12 22:08 | RADRPT ---
EXAM DATE/TIME: 02/12/2018 21:03 [place] COMPARISON: No previous studies available for comparison. INDICATIONS : Syncope. MEDICAL HISTORY : Tinnitus. Swollen glands. Seizures. Syncope. Hyperlipidemia. Nasal discharge. SURGICAL HISTORY : Tonsillectomy. Right ankle surgery. ENCOUNTER: Initial ACUITY: 1 day PAIN SCORE: 0/10 LOCATION: Bilateral neck PEAK SYSTOLIC VELOCITIES (cm/sec): ICA/CCA RATIO: Right: 0.8 Left: 0.8 ICA: Right: 107 Left: 144 CCA: Right: 132 Left: 178 ECA: Right: 114 Left: 118 VERTEBRAL: Right: 59 antegrade Left: 56 antegrade Elevated flow velocities and ICA/CCA ratios have been found to correlate with increased degrees of vessel stenosis, calculated as percentage of diameter relative to a normal segment of distal ICA/CCA FINDINGS: RIGHT CAROTID: No significant stenosis is visualized. The waveforms are within normal limits. LEFT CAROTID: No significant stenosis is visualized. The waveforms are within normal limits. VERTEBRAL ARTERIES: Antegrade flow is seen in both vertebral arteries. MISCELLANEOUS: None. CONCLUSION: 1. Mild visible plaque formation in the carotid arteries. Hemodynamically significant stenosis. Loe North MD on February 12, 2018 at 22:05 Board Certified Radiologist. This report was verified electronically.
[2018-02-13 00:08] VITALS: PULSE 85
[2018-02-13 04:07] VITALS: PULSE 81
[2018-02-13 04:14] VITALS: BP 122/74; PULSE 85; RESP 18; TEMP 98.9; O2SAT 94
[2018-02-13] MEDS: RESP: ALBUTEROL 2.5 MG/IPRATROPIUM 0.5 MG NEB (SCH) INH ×3 (04:39→15:50)
[2018-02-13 07:20] VITALS: BP 141/80; PULSE 91; RESP 18; TEMP 99.1; O2SAT 93
[2018-02-13 08:05] VITALS: O2SAT 93
[2018-02-13] MEDS: DOCUSATE SODIUM 50 MG/SENNA 8.6 MG TAB PO SCH (09:00)
[2018-02-13 09:06] LABS: AUTOMATED NEUTROPHIL # 4.8 TH/MM3 (1.8-7.7); BASOPHIL # 0.2 TH/MM3 (0-0.2); BASOPHIL % 0.5 % (0.0-2.0); EOSINOPHIL # 0.3 TH/MM3 (0-0.4); EOSINOPHIL % 0.6 % (0.0-4.0); HEMATOCRIT 29.5 % (39.0-51.0); HEMOGLOBIN 9.8 GM/DL (13.0-17.0); LYMPH % 87.7 % (9.0-44.0); LYMPHOCYTE # 41.3 TH/MM3 (1.0-4.8); MEAN CELL VOLUME 90.8 FL (80.0-100.0); MEAN CORPUSCULAR HEMOGLOBIN 30.1 PG (27.0-34.0); MEAN CORPUSCULAR HGB CONC 33.1 % (32.0-36.0); MEAN PLATELET VOLUME 7.6 FL (7.0-11.0); MONO % 0.9 % (0.0-8.0); MONOCYTE # 0.4 TH/MM3 (0-0.9); NEUT % 10.3 % (16.0-70.0); PLATELET COUNT 146 TH/MM3 (150-450); RED BLOOD COUNT 3.25 MIL/MM3 (4.50-5.90); RED CELL DISTRIBUTION WIDTH 18.1 % (11.6-17.2); WHITE BLOOD COUNT 47.1 TH/MM3 (4.0-11.0)
[2018-02-13 09:37] LABS: BICARBONATE 21.5 MEQ/L (21.0-32.0); CALCIUM 8.9 MG/DL (8.5-10.1); CREATININE 1.14 MG/DL (0.60-1.30)
--- NOTE | 2018-02-13 09:44 | HHI.FPPN ---
Subjective Remarks No acute events overnight. Patient states he feels well and is eager to go home. No CP, SOB, dizziness, N/V. Objective Vitals Vital Signs Date Time Temp Pulse Resp B/P (MAP) Pulse Ox O2 Delivery O2 Flow Rate FiO2 02/13/18 08:05 93 02/13/18 07:20 99.1 91 18 141/80 (100) 93 02/13/18 04:14 98.9 85 18 122/74 (90) 94 02/13/18 04:07 81 02/13/18 00:08 85 02/12/18 23:25 98.6 91 18 119/72 (88) 96 02/12/18 22:25 94 21 02/12/18 20:57 16 02/12/18 20:00 16 02/12/18 19:50 100.1 98 19 147/78 (101) 95 02/12/18 17:06 98.4 90 18 128/80 (96) 96 02/12/18 13:12 98.1 83 18 126/65 (85) I/O 02/12/18 02/12/18 02/12/18 02/13/18 02/13/18 02/13/18 07:00 15:00 23:00 07:00 15:00 23:00 Intake Total 960 ml Balance 960 ml Intake Oral 960 ml # Voids 3 4 # Bowel Movements 1 2 Result Diagram: 02/13/18 0758 02/13/18 0758 Objective Remarks GEN: Well-developed, well-nourished patient. No acute distress. Laying in bed comfortably. SKIN: No rashes, ecchymoses or lesions. Warm and dry. CV: Regular rate and rhythm without obvious murmurs LUNGS: Mild bibasilar crackles. No wheezes. Normal respiratory effort. GI: Soft, nondistended. Bowel sounds present. EXT: No edema. No calf tenderness. NEURO/PSYCH: Awake, alert. Appropriate insight and judgment. Normal speech A/P Assessment and Plan 67-year-old male with CLL currently in workup process, hypothyroidism, osteoarthritis who presents after syncopal episode. This is his second syncopal episode since October 2017 and he notes that he possibly had seizure activity both times. No seizure workup has yet occurred. On workup in the ED patient found to have possible pneumonia given symptoms and CXR findings. Suspect initial viral etiology but this likely is transition to bacterial source at this time given chronicity. CTA negative for PE. Leukocytosis noted, but this is at patient's baseline if not improved. Last labs were 02/04/[address] Marie. Also noted to have ITZEL on admission. Echocardiogram from outpatient reviewed from 11/19/2017 showing normal EF 55-60% , mild MR, mild TR. Discharge Planning Patient admitted for IV antibiotics and close monitoring. He is also been closely monitored for seizure activity which has not had. EEG is negative. MRI is negative aside from venous angioma which is generally benign. Patient is ready to go home today and has been cleared by specialist. DC home on Augmentin and Azithro for CAP DW Dr. Lynch Problem List: (1) Pneumonia ICD Codes: J18.9 - Pneumonia, unspecified organism Status: Acute Plan: Improving, on room air, continue management. Blood cultures are negative. Clinically patient feels he is improving. Would be reasonable to discharge patient on outpatient therapy once cleared by hematology. Hospital Course: Patient presented with approximately 1 week history of upper respiratory symptoms which have worsened gradually. Syncopal episode today may have been related to acute infection. Patient is status post 1 L normal saline in the ED with workup notable for leukocytosis but interpretation is complicated by CLL diagnosis. Status post 125 milligrams Solu-Medrol IV 1 in ED. CXR showing small bilateral infiltrates in both lung mistry, CTA showing no PE and similar infiltrates. * Continue normal saline at 140cc/hr * Rocephin 1 g daily, Zithromax 100 mg daily to cover for pneumonia * Duo nebs every 6 hours scheduled, albuterol every 2 hours as needed * Continue fluticasone 2 sprays each nare daily * Patient is noted to have had Prevnar vaccine August 2015, pneumococcal vaccine November 2016. * Recheck CBC and BMP regularly, discontinue IV fluids once ITZEL resolved * * Discharging home on Azithro 250mg daily for 2 days, Augmentin 850 mg BID for 7 days (2) Seizure ICD Codes: R56.9 - Unspecified convulsions Status: Acute Plan: No seizure-like activity since admission. We will continue to monitor and continue seizure precautions. EEG negative. MRI negative aside from venous angioma which is likely congenital and benign. Hospital Course: Patient with possible first or second episode of seizure lasting approximately 1 minute. Possibly this was a syncopal episode the patient did have loss of bladder function during episode. No previous EEG workup. CT head negative on arrival to ED. Will initiate seizure precautions, give Ativan if needed (3) Syncopal episodes ICD Codes: R55 - Syncope and collapse Plan: Unclear etiology, possibly related to seizure or dehydration or acute infection. Will monitor closely as noted above. Telemetry. Echo reviewed from outpatient noted above. Cardiac enzymes WNL Carotid ultrasound ordered from neurology - no significant findings (4) Chronic lymphocytic leukemia ICD Codes: C91.90 - Lymphoid leukemia, unspecified not having achieved remission Status: Acute Plan: Patient is noted to have decrease in his hemoglobin from 10-9 today. White count has decreased by approximately 10 as well. . ANC downtrending, will monitor Hematology consulted and cleared for discharge Hospital course: Patient diagnosed approximately October 2017 for CLL. Currently receiving workup to include bone marrow biopsy next week, body scan at that time as well. Dr. Marie is local oncologist and patient also is being evaluated at [facility] in [place]. Not currently on any treatments. Leukocytosis noted with WBC approximately 64 at time of admission. Noted to have mild anemia and lower limit platelet count on admission, stable. * Notably ANC is 3550, will monitor closely * If ANC drops below 1000 will consider broad spectrum antibiotics to cover Pseudomonas and other GNR's given immunocompromised (5) ITZEL (acute kidney injury) ICD Codes: N17.9 - Acute kidney failure, unspecified Status: Acute Plan: Noted, mild on admission, now resolved. Suspect due to dehydration. Will discontinue IV fluids given p.o. tolerated, monitor BMP (6) HLD (hyperlipidemia) ICD Codes: E78.5 - Hyperlipidemia, unspecified Status: Chronic Plan: Chronic, stable, continue home dose of simvastatin 20 mg daily and fenofibrate 145 mg daily (7) Fluids/Electrolytes/Nutrition/Prophylaxis Status: Acute Plan: Fluids: tolerating PO/NS @ 140ml/hr DC'd on 02/11. IV bolus one liter given . Electrolytes: monitor and replete as needed Nutrition: Regular diet DVT Prophylaxis: Early ambulation. Lovenox 40mg subQ q24hr/bilateral SCDs GI Prophylaxis: None and PRN anti-HTN: Clonidine 0.1mg PO PRN for SBP > 180/ and/or DBP > 100 Problem Qualifiers (1) Pneumonia: Qualified Codes: J18.9 - Pneumonia, unspecified organism Tonio Aguirre MD R1 Feb 13, 2018 09:44
[2018-02-13 09:55] LABS: BASOPHILS 1 % (0-2); LYMPHOCYTES 93 % (9-44); MONOCYTES 1 % (0-8); NEUTROPHIL # MANUAL DIFF 1.9 TH/MM3 (1.8-7.7); POLYS (SEG NEUTROPHILS) 4 % (16-70)
[2018-02-13 09:56] LABS: SMUDGE CELLS PRESENT PRESENT
[2018-02-13] MEDS ORDERED: AMOX875T PO (11:02)
[2018-02-13] MEDS ORDERED: AZIT500T2 PO (11:02)
--- NOTE | 2018-02-13 11:05 | HHI.DCPOC ---
Discharge Care Plan Diagnosis: (1) Chronic lymphocytic leukemia (2) Pneumonia (3) Syncopal episodes (4) ITZEL (acute kidney injury) Goals to Promote Your Health * To prevent worsening of your condition and complications * To maintain your health at the optimal level Directions to Meet Your Goals Take your medications as prescribed Follow your dietary instruction Follow activity as directed Keep your appointments as scheduled Take your immunizations and boosters as scheduled If your symptoms worsen call your PCP, if no PCP go to Urgent Care Center or Emergency Room Smoking is Dangerous to Your Health. Avoid second hand smoke Call the 24-hour hour crisis hotline for domestic abuse at Tonio Aguirre MD R1 Feb 13, 2018 11:05
[2018-02-13 11:08] VITALS: BP 137/85; PULSE 93; RESP 18; TEMP 98.3; O2SAT 90
[2018-02-13] MEDS: INDOMETHACIN 75 MG CONTROLLED RELEASE CAP PO SCH (11:09)
[2018-02-13] MEDS: AZITHROMYCIN 250 MG TAB PO SCH (11:09)
[2018-02-13] MEDS: PRAVASTATIN SOD 40 MG TAB PO SCH (11:10)
[2018-02-13] MEDS: FLUTICASONE PROPIONATE 50 MCG/ACT 16 GM NASAL SPRAY EACH NARE SCH (11:11)
[2018-02-13] MEDS: FENOFIBRATE 48 MG TAB PO SCH (11:11)
[2018-02-13] MEDS: SODIUM CHLORIDE 0.9% FLUSH 10 ML FLUSH IV FLUSH SCH (11:14)
[2018-02-13] MEDS ORDERED: LACTPOW68 PO (12:11)
[2018-02-13] MEDS ORDERED: AUGM875T3 PO (12:11)
[2018-02-13] MEDS ORDERED: AZIT250T3 PO (12:11)
--- NOTE | 2018-02-13 13:34 | HHI.DS ---
Discharge Summary Admission Date Feb 10, 2018 at 14:15 Discharge Date: Feb 13, 2018 Admitting Diagnosis pneumonia, syncope, chronic lymphocytic leukemia (1) Pneumonia ICD Codes: J18.9 - Pneumonia, unspecified organism Status: Acute (2) Seizure ICD Codes: R56.9 - Unspecified convulsions Status: Acute (3) Syncopal episodes ICD Codes: R55 - Syncope and collapse (4) Chronic lymphocytic leukemia Plan: Patient is noted to have decrease in his hemoglobin from 10-9 today. White count has decreased by approximately [address] Marie who recommends workup for acute hemolysis and thus haptoglobin, Jason studies, LDH was ordered today. ANC downtrending, will monitor Hematology consulted, recommending cardiology and neurology evaluations Hospital course: Patient diagnosed approximately October 2017 for CLL. Currently receiving workup to include bone marrow biopsy next week, body scan at that time as well. Dr. Marie is local oncologist and patient also is being evaluated at [facility] in [place]. Not currently on any treatments. Leukocytosis noted with WBC approximately 64 at time of admission. Noted to have mild anemia and lower limit platelet count on admission, stable. * Notably ANC is 3550, will monitor closely * If ANC drops below 1000 will consider broad spectrum antibiotics to cover Pseudomonas and other GNR's given immunocompromised ICD Codes: C91.90 - Lymphoid leukemia, unspecified not having achieved remission Status: Acute Brief History Patient is a 67 year old male with history of CLL and HTN, and hypothyroidism who presents after syncopal episode and likely seizure. About one week ago patient began to have a cough, productive but patient has not seen it (swallows it). This morning he went for evaluate at [facility]. Patient had a temperature of about 101F at home last night. He took Nyquil which did not help with his symptoms. He acutely got worse and had a syncopal/ seizure-type episode. He was sitting in chair and patient became diaphoretic, lied down and then blacked out. Per , he lost his color, eyes rolled back in head, had urinary incontinence. No tongue biting. No room spinning or dizziness symptoms. Lasted 30 seconds to one minute. About fifteen minutes later he felt a similar prodrome but did not lose consciousness. He was taken to ED via [facility] for further work-up. No history of seizures aside from possible seizure in 10/2017. Has pleuritis chest pain. No shortness of breath. Notes he has had only coffee today. Patient has recent diagnosis of CLL: * October 2017: had an episode like a seizure. He was sitting in restaurant after a day of golf, then patient became diaphoretic and had a syncopal episode. Echo, bloodwork performed at that time, concerning for CLL. FISH studies, other w/u pending. * Dr. Marie evaluated patient. Dr. Pepper in [place] ([facility]). Scheduled for bone marrow bx and CT scans at [facility] next * Scheduled to go to [place] on March 25 CBC/BMP: 02/13/18 0758 02/13/18 0758 Significant Findings Laboratory Tests Test 02/10/18 19:19 02/11/18 01:35 02/11/18 07:30 02/11/18 12:27 White Blood Count 64.6 TH/MM3 (4.0-11.0) 54.6 TH/MM3 (4.0-11.0) Red Blood Count 3.39 MIL/MM3 (4.50-5.90) 2.97 MIL/MM3 (4.50-5.90) Hemoglobin 10.1 GM/DL (13.0-17.0) 9.0 GM/DL (13.0-17.0) Hematocrit 31.8 % (39.0-51.0) 27.5 % (39.0-51.0) Mean Corpuscular Hemoglobin Concent 31.8 % (32.0-36.0) Red Cell Distribution Width 17.8 % (11.6-17.2) 18.1 % (11.6-17.2) Platelet Count 145 TH/MM3 (150-450) 133 TH/MM3 (150-450) Neutrophils (%) (Auto) 5.7 % (16.0-70.0) Lymphocytes (%) (Auto) 92.9 % (9.0-44.0) Lymphocytes # (Auto) 60.0 TH/MM3 (1.0-4.8) Neutrophils % (Manual) 5 % (16-70) 3 % (16-70) Lymphocytes % 94 % (9-44) 97 % (9-44) Blood Urea Nitrogen 28 MG/DL (7-18) 31 MG/DL (7-18) 31 MG/DL (7-18) Creatinine 1.57 MG/DL (0.60-1.30) 1.36 MG/DL (0.60-1.30) Random Glucose 264 MG/DL (74-106) 175 MG/DL (74-106) 156 MG/DL (74-106) Estimat Glomerular Filtration Rate 44 ML/MIN (>89) 52 ML/MIN (>89) 60 ML/MIN (>89) Troponin I LESS THAN 0.02 NG/ML LESS THAN 0.02 NG/ML Neutrophils # (Manual) 1.6 TH/MM3 (1.8-7.7) Platelet Estimate LOW (NORMAL) Albumin 3.3 GM/DL (3.4-5.0) Calcium Level 8.3 MG/DL (8.5-10.1) Alkaline Phosphatase 39 U/L (45-117) Chloride Level 111 MEQ/L (98-107) 113 MEQ/L (98-107) Thyroid Stimulating Hormone 3rd Gen 0.288 uIU/ML (0.358-3.740) Carbon Dioxide Level 19.0 MEQ/L (21.0-32.0) Haptoglobin 265 MG/DL (30-200) Lactate Dehydrogenase 588 U/L (87-241) Test 02/11/18 19:10 02/12/18 15:10 02/13/18 07:58 Immunoglobulin A 50 MG/DL (98-543) Immunoglobulin M 32 MG/DL (39-238) White Blood Count 38.9 TH/MM3 (4.0-11.0) 47.1 TH/MM3 (4.0-11.0) Red Blood Count 2.97 MIL/MM3 (4.50-5.90) 3.25 MIL/MM3 (4.50-5.90) Hemoglobin 9.3 GM/DL (13.0-17.0) 9.8 GM/DL (13.0-17.0) Hematocrit 27.1 % (39.0-51.0) 29.5 % (39.0-51.0) Red Cell Distribution Width 18.2 % (11.6-17.2) 18.1 % (11.6-17.2) Platelet Count 123 TH/MM3 (150-450) 146 TH/MM3 (150-450) Neutrophils (%) (Auto) 6.8 % (16.0-70.0) 10.3 % (16.0-70.0) Lymphocytes (%) (Auto) 92.0 % (9.0-44.0) 87.7 % (9.0-44.0) Lymphocytes # (Auto) 35.7 TH/MM3 (1.0-4.8) 41.3 TH/MM3 (1.0-4.8) Neutrophils % (Manual) 1 % (16-70) 4 % (16-70) Lymphocytes % 98 % (9-44) 93 % (9-44) Neutrophils # (Manual) 0.8 TH/MM3 (1.8-7.7) Platelet Estimate LOW (NORMAL) LOW (NORMAL) Ovalocytes 1+ (NORMAL) Blood Urea Nitrogen 26 MG/DL (7-18) 20 MG/DL (7-18) Random Glucose 121 MG/DL (74-106) 110 MG/DL (74-106) Calcium Level 8.2 MG/DL (8.5-10.1) Chloride Level 109 MEQ/L (98-107) Estimat Glomerular Filtration Rate 65 ML/MIN (>89) 64 ML/MIN (>89) PE at Discharge GEN: Well-developed, well-nourished patient. No acute distress. Sitting up in a chair. He is comfortable. SKIN: No rashes, ecchymoses or lesions. Warm and dry. CV: Regular rate and rhythm without obvious murmurs LUNGS: Mild bibasilar crackles. No wheezes. Normal respiratory effort. GI: Soft, nondistended. Bowel sounds present. EXT: No edema. No calf tenderness. NEURO/PSYCH: Awake, alert. Appropriate insight and judgment. Normal speech Hospital Course Patient presented with approximately 1 week history of upper respiratory symptoms which have worsened gradually. Patient with possible first or second episode of seizure lasting approximately 1 minute. Possibly this was a syncopal episode the patient did have loss of bladder function during episode. EEG negative. CT head negative. MRI negative aside from venous angioma which is likely congenital and benign. Syncopal episode on day of admission may have been related to acute infection. Workup notable for leukocytosis but interpretation is complicated by CLL diagnosis. CXR showing small bilateral infiltrates in both lung mistry, CTA showing no PE and similar infiltrates. * Rocephin 1 g daily, Zithromax 100 mg daily to cover for pneumonia No seizure-like activity since admission. Patient was seen by neurology and patient's oncologist and he was cleared for discharge on 02/13. Discharged on Azithromycin and Augmentin to cover for CAP. Pt Condition on Discharge: Good Discharge Disposition: Discharge Home Discharge Instructions DIET: Follow Instructions for: As Tolerated, No Restrictions Activities you can perform: Regular-No Restrictions Follow up Referrals: Oncology - 2 Weeks with Kaia Marie MD PCP Follow-up - 1 Month New Medications: Amoxicillin-Clavulanate (Augmentin) 875-125 Mg Tab 1 TAB PO BID for Infection, #14 TAB 0 Refills Azithromycin (Azithromycin) 250 Mg Tab 250 MG PO DAILY for Infection, #2 TAB 0 Refills Lactobacillus Acidophilus (Lactobacillus Acidophilus) 1 Pkt 1 PKT PO TID for Nutritional Supplement, #21 PKT 0 Refills Continued Medications: Coenzyme Q10 (Ubidecarenone) (Coq-10) 400 Mg Cap 100 MG PO DAILY Fenofibrate (Fenofibrate) 145 Mg Tab 145 MG PO DAILY, #90 TAB 3 Refills Fluticasone Nasal [place] (Fluticasone Nasal [place]) 50 Mcg/Act Naspr 50 MCG EACH NARE BID for Allergy Management, #1 BOTTLE 6 Refills 50 mcg/spray Indomethacin ER (Indomethacin ER) 75 Mg Caper 75 MG PO DAILY, #90 CAP 3 Refills Take with food, milk, or antacids to decrease stomach adverse effects. [place]-3 Fatty Acids ([place] 3 500 500 mg) 500 Mg (200 Mg-300 Mg)-1,000 Mg Cap 1 G PO DAILY, #60 CAP 5 Refills Simvastatin (Simvastatin) 20 Mg Tab 20 MG PO DAILY for Cholesterol Management, #90 TAB 3 Refills Tonio Aguirre MD R1 Feb 13, 2018 13:34
--- NOTE | 2018-02-13 13:45 | PD.ONC.PN ---
Subjective Subjective Remarks T-max 100.1 around 8 PM last night Patient reports he feels much better Denies shortness of breath Anxious to go home Objective Data Date Time Temp Pulse Resp B/P (MAP) Pulse Ox O2 Delivery O2 Flow Rate FiO2 02/13/18 11:08 98.3 93 18 137/85 (102) 90 02/13/18 08:05 93 02/13/18 07:20 99.1 91 18 141/80 (100) 93 02/13/18 04:14 98.9 85 18 122/74 (90) 94 02/13/18 04:07 81 02/13/18 00:08 85 02/12/18 23:25 98.6 91 18 119/72 (88) 96 02/12/18 22:25 94 21 02/12/18 20:57 16 02/12/18 20:00 16 02/12/18 19:50 100.1 98 19 147/78 (101) 95 02/12/18 17:06 98.4 90 18 128/80 (96) 96 Result Diagram: 02/13/18 0758 02/13/18 0758 Laboratory Results Laboratory Tests Test 02/12/18 15:10 02/13/18 07:58 White Blood Count 38.9 TH/MM3 47.1 TH/MM3 Red Blood Count 2.97 MIL/MM3 3.25 MIL/MM3 Hemoglobin 9.3 GM/DL 9.8 GM/DL Hematocrit 27.1 % 29.5 % Mean Corpuscular Volume 91.2 FL 90.8 FL Mean Corpuscular Hemoglobin 31.2 PG 30.1 PG Mean Corpuscular Hemoglobin Concent 34.2 % 33.1 % Red Cell Distribution Width 18.2 % 18.1 % Platelet Count 123 TH/MM3 146 TH/MM3 Mean Platelet Volume 7.6 FL 7.6 FL Neutrophils (%) (Auto) 6.8 % 10.3 % Lymphocytes (%) (Auto) 92.0 % 87.7 % Monocytes (%) (Auto) 0.6 % 0.9 % Eosinophils (%) (Auto) 0.5 % 0.6 % Basophils (%) (Auto) 0.1 % 0.5 % Neutrophils # (Auto) 2.6 TH/MM3 4.8 TH/MM3 Lymphocytes # (Auto) 35.7 TH/MM3 41.3 TH/MM3 Monocytes # (Auto) 0.2 TH/MM3 0.4 TH/MM3 Eosinophils # (Auto) 0.2 TH/MM3 0.3 TH/MM3 Basophils # (Auto) 0.1 TH/MM3 0.2 TH/MM3 CBC Comment AUTO DIFF AUTO DIFF Differential Total Cells Counted 100 100 Neutrophils % (Manual) 1 % 4 % Band Neutrophils % 1 % Lymphocytes % 98 % 93 % Neutrophils # (Manual) 0.8 TH/MM3 1.9 TH/MM3 Differential Comment FINAL DIFF MANUAL FINAL DIFF MANUAL Platelet Estimate LOW LOW Platelet Morphology Comment NORMAL NORMAL Ovalocytes 1+ Blood Urea Nitrogen 26 MG/DL 20 MG/DL Creatinine 1.12 MG/DL 1.14 MG/DL Random Glucose 121 MG/DL 110 MG/DL Calcium Level 8.2 MG/DL 8.9 MG/DL Sodium Level 142 MEQ/L 137 MEQ/L Potassium Level 3.8 MEQ/L 4.0 MEQ/L Chloride Level 109 MEQ/L 104 MEQ/L Carbon Dioxide Level 23.0 MEQ/L 21.5 MEQ/L Anion Gap 10 MEQ/L 12 MEQ/L Estimat Glomerular Filtration Rate 65 ML/MIN 64 ML/MIN Monocytes % 1 % Eosinophils % 1 % Basophils % 1 % Smudge Cells PRESENT Red Cell Morphology Comment NORMAL Administered Medications Medications (Trade) Dose Ordered Sig/Mundo Route PRN Reason Start Time Stop Time Status Last Admin Dose Admin Sodium Chloride (NS Flush) 2 ml BID IV FLUSH 02/10/18 21:00 02/13/18 11:14 Acetaminophen (Tylenol) 650 mg Q4H PRN PO TEMP > 100.4, PAIN 1-10 02/10/18 14:30 02/12/18 19:57 Enoxaparin Sodium (Lovenox Inj) 40 mg Q24H SQ 02/10/18 16:00 02/12/18 17:04 Senna/Docusate Sodium (Karmen-Colace) 1 tab BID PO 02/10/18 21:00 02/12/18 08:58 Fluticasone Propionate (Flonase Petr Spr) 1 spray BID EACH NARE 02/10/18 21:00 02/13/18 11:11 Indomethacin (Indocin Sr) 75 mg DAILY PO 02/10/18 15:15 02/13/18 11:09 Ceftriaxone Sodium 1000 mg/ Sodium Chloride 100 ml @ 200 mls/hr Q24H IV 02/11/18 14:00 02/12/18 14:57 Azithromycin (Zithromax) 500 mg DAILY PO 02/11/18 09:00 02/13/18 11:09 Fenofibrate (Tricor) 48 mg DAILY PO 02/11/18 09:00 02/13/18 11:11 Pravastatin Sodium (Pravachol) 40 mg DAILY PO 02/10/18 20:00 02/13/18 11:10 Albuterol/ Ipratropium (Duoneb Neb) 1 ampule Q6HR NEB INH 02/10/18 16:00 02/13/18 08:04 Objective Remarks GENERAL: Jovial obese older male sitting up in bed watching TV in no obvious distress SKIN: Warm and dry. HEAD: Normocephalic. EYES: No scleral icterus. No injection or drainage. NECK: Supple, trachea midline. CARDIOVASCULAR: Regular rate and rhythm without murmurs. RESPIRATORY: Breath sounds equal bilaterally. No accessory muscle use. GASTROINTESTINAL: Abdomen protuberant but soft EXTREMITIES: No cyanosis, or edema. MUSCULOSKELETAL: Adequate muscle tone. NEUROLOGICAL: No obvious focal deficit. Awake, alert, and oriented x3. Assessment/Plan Problem List: (1) Chronic lymphocytic leukemia ICD Codes: C91.90 - Lymphoid leukemia, unspecified not having achieved remission Status: Acute Plan: --Patient has staging and prognostic eval at [facility] next week --Likely plan to start systemic therapy with ibrutinib sooner than later Assessment 67-year-old male admitted with syncopal episode; hematology consulted for diagnosis of CLL with lymphadenopathy Plan 1. Clear for discharge from oncology standpoint 2. Follow-up in clinic after appointment with [facility] 3. Antibiotics per primary 4. Supportive care Attending Statement The exam, history, and the medical decision-making described in the above note were completed with the assistance of the mid-level provider. I reviewed and agree with the findings presented. I attest that I had a [id number] encounter with the patient on the same day, and personally performed and documented my assessment and findings in the medical record. Pt seen and examined, information on Ibrutinib reviewed. Neutropenia resolving, noted low grade temp. Pt desirous to start therapy after his trip to [place], pending staging BM and Next Gen Sequencing evaluation at [facility]. Cont abx per primary team. No more syncopal episodes- likely dehydration and vagal event. Unlikely arrythmia or seizures. FU as out patient. Carol Schaefer Feb 13, 2018 13:45 Kaia Marie MD Feb 13, 2018 18:07
[2018-02-13] MEDS: cefTRIAXone INJ 1,000 MG in SODIUM CHLORIDE 0.9% INJ 100 ML IV SCH (14:08)
--- NOTE | 2018-02-14 22:15 | EKG ---
Date Performed: 02/11/2018 Time Performed: 02:36:00 PTAGE: 67 years EKG: Sinus rhythm Since previous tracing, no significant change noted Normal ECG PREVIOUS TRACING : 02/10/2018 21.29 DOCTOR: Ramu Kelley Interpretating Date/Time 02/14/2018 22:14:40
[2018-02-17 17:34] LABS: ALB/GLOB RATIO (SPE) 1.69 (1.39-2.23)
== END 2018-02-13 15:20 | disposition home or self-care (01) | DRG 194 ==
LOC: NEPC 11:25 → NEDA 14:15 → HCIN 17:00
PROVIDERS: ADMIT Family Medicine; ATTEND Family Medicine
DX: J18.9 Pneumonia, unspecified organism (principal); N17.9 Acute kidney failure, unspecified; C91.10 Chronic lymphocytic leukemia of B-cell type not having achieved remission; R56.9 Unspecified convulsions; R55 Syncope and collapse; E86.0 Dehydration; D64.9 Anemia, unspecified; I10 Essential (primary) hypertension; E03.9 Hypothyroidism, unspecified; M19.90 Unspecified osteoarthritis, unspecified site; E78.5 Hyperlipidemia, unspecified
CPT/HCPCS: 70450; 70553; 71046; 71275; 80048; 80053; 80307; 82550; 82552; 82784; 83010; 83605; 83615; 83735; 84165; 84443; 84484; 85007; 85027; 85610; 85730; 86077; 86850; 86870; 86880; 86902; 86920; 86922; 87040; 93005; 93306; 93880; 94640; 94664; 95819; 96361; 96374; 96375; A9579; J0456; J0696; J1650; J2930; J7030; J7050; Q9967